=== PATIENT | male | born 1995 | race Caucasian/White ===

== ENCOUNTER 2018-10-28 18:53 | Emergency (ER) | payer OTHER ==
[2018-10-28 18:58] VITALS: RESP 18; TEMP 97.7
[2018-10-28] MEDS ORDERED: IBUPROFEN 600 MG STARTER PACK 4 TAB BTL PO STA (19:14)
[2018-10-28] MEDS ORDERED: CYCLOBENZAPRINE 10MG STARTER 3 TAB BTL PO STA (19:14)
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
--- NOTE | 2018-10-28 21:01 | XR ---
PROCEDURE: XR lumbar spine - 3V DATE AND TIME: 10/28/2018 7:46 PM CLINICAL INDICATION: [facility]; Pain TECHNIQUE: Department protocol COMPARISON: 04/28/2016 FINDINGS: There is no fracture or malalignment. The soft tissues are unremarkable. IMPRESSION: NO ACUTE PROCESS.
--- NOTE | 2018-10-28 21:01 | XR ---
PROCEDURE: XR thoracic spine 3V DATE AND TIME: 10/28/2018 7:46 PM CLINICAL INDICATION: [facility]; Pain TECHNIQUE: Department protocol COMPARISON: None FINDINGS: There is no fracture or malalignment. The soft tissues are unremarkable. IMPRESSION: NO ACUTE PROCESS.
[2018-10-28 21:42] VITALS: BP 133/73; PULSE 72
== END 2018-10-28 21:42 | disposition home or self-care (01) ==
LOC: EC 18:53
DX: M54.5 Low back pain (principal); M54.6 Pain in thoracic spine
CPT/HCPCS: 72070; 72100; 99284

== ENCOUNTER 2019-09-01 19:24 | Observation (INO) | payer BC ==
--- NOTE | 2019-09-01 19:55 | ED ---
General Adult HPI - General Source: patient, EMS, RN notes reviewed, old records reviewed Mode of arrival: EMS <Bryant Wilson - Last Filed: 09/01/19 21:01> <Leila Jc - Last Filed: 09/01/19 23:32> - General Chief complaint: Abdominal Pain Stated complaint: Abd pain Time Seen by Provider: 09/01/19 19:30 - History of Present Illness Initial comments: This is a 24-year-old male who comes in complaining of abdominal pain in the mid epigastric area since 2:00 this afternoon. Patient states she's been somewhat nauseated but has not vomited. Patient denies any diarrhea. Patient states he has not had a bowel movement today. Patient denies any previous abdominal surgeries. Patient states he went to an urgent care and they sent her to the emergency department. Patient denies any chest pain difficulty breathing shortest breath. Patient denies any drinking of alcohol. Patient denies any fever or chills. Patient states when he was up and moving around the pain went away for a short period time but then it returned. (Bryant Wilson) - Related Data Home Medications Medication Instructions Recorded Confirmed No Known Home Medications 09/01/19 09/01/19 Allergies Allergy/AdvReac Type Severity Reaction Status Date / Time No Known Allergies Allergy Verified 09/01/19 20:08 Review of Systems ROS Other: All systems not noted in ROS Statement are negative. <Bryant Wilson - Last Filed: 09/01/19 21:01> ROS Other: All systems not noted in ROS Statement are negative. <Leila Jc - Last Filed: 09/01/19 23:32> ROS Statement: Those systems with pertinent positive or pertinent negative responses have been documented in the HPI. Past Medical History Past Medical History: No Reported History History of Any Multi-Drug Resistant Organisms: None Reported Past Surgical History: No Surgical Hx Reported Past Psychological History: No Psychological Hx Reported Smoking Status: Never smoker Past Alcohol Use History: None Reported Past Drug Use History: None Reported <Byrant Wilson - Last Filed: 09/01/19 21:01> General Exam <Bryant Wilson - Last Filed: 09/01/19 21:01> - General Exam Comments Initial Comments: GENERAL: Patient is well-developed and well-nourished. Patient is nontoxic and well- hydrated and is in mild distress. ENT: Neck is soft and supple. No significant lymphadenopathy is noted. Oropharynx is clear. Moist mucous membranes. Neck has full range of motion without eliciting any pain. EYES: The sclera were anicteric and conjunctiva were pink and moist. Extraocular mo vements were intact and pupils were equal round and reactive to light. Eyelids were unremarkable. PULMONARY: Unlabored respirations. Good breath sounds bilaterally. No audible rales rhonchi or wheezing was noted. CARDIOVASCULAR: There is a regular rate and rhythm without any murmurs gallops or rubs. ABDOMEN: Mild epigastric abdominal pain. No palpable organomegaly was noted. There is no palpable pulsatile mass. SKIN: Skin is clear with no lesions or rashes and otherwise unremarkable. NEUROLOGIC: Patient is alert and oriented x3. Cranial nerves II through XII are grossly intact. Motor and sensory are also intact. Normal speech, volume and content. Symmetrical smile. MUSCULOSKELETAL: Normal extremities with adequate strength and full range of motion. No lower extremity swelling or edema. No calf tenderness. LYMPHATICS: No significant lymphadenopathy is noted PSYCHIATRIC: Normal psychiatric evaluation. (Bryant Wilson) Course Vital Signs 09/01/19 09/01/19 19:29 22:35 Temperature 96.9 F L Pulse Rate 69 66 Respiratory 18 18 Rate Blood Pressure 132/75 119/72 O2 Sat by Pulse 100 100 Oximetry Medical Decision Making - Lab Data Result diagrams: 09/01/19 20:15 <Bryant Wilson - Last Filed: 09/01/19 21:01> - Lab Data Result diagrams: 09/01/19 20:15 09/01/19 20:15 <Leila Jc - Last Filed: 09/01/19 23:32> - Medical Decision Making Dr. Jc will be taking over the care of the patient at 9 PM (Bryant Wilson) Patient care was signed out to me by Dr. Wilson. This is a previously healthy 24-year-old gentleman who presented with abdominal pain. At the time of sign out labs are pending. Labs resulted with mild leukocytosis or significant abnormalities urinalysis was unremarkable. I reevaluated patient who reported 10/10 pain. Pain was now localizing to the right lower quadrant, computed tomography scan was ordered and results with an acute appendicitis. Results were discussed with the patient who is agreeable with plan for observation and likely surgical intervention. Patient care was discussed with Dr. Peraza who accepts the patient to his service, requests pain management antiemetics antibiotics nothing by mouth status plan for surgery tomorrow. (Leila Jc) - Lab Data Lab Results 09/01/19 09/01/19 09/01/19 Range/Units 20:15 20:15 20:15 WBC 14.4 H (3.8-10.6) k/uL RBC 4.41 (4.30-5.90) m/uL Hgb 14.1 (13.0-17.5) gm/dL Hct 42.2 (39.0-53.0) % MCV 95.7 (80.0-100.0) fL MCH 32.1 (25.0-35.0) pg MCHC 33.5 (31.0-37.0) g/dL RDW 13.3 (11.5-15.5) % Plt Count 285 (150-450) k/uL Neutrophils % 89 % Lymphocytes % 5 % Monocytes % 6 % Eosinophils % 0 % Basophils % 0 % Neutrophils # 12.7 H (1.3-7.7) k/uL Lymphocytes # 0.7 L (1.0-4.8) k/uL Monocytes # 0.8 (0-1.0) k/uL Eosinophils # 0.1 (0-0.7) k/uL Basophils # 0.0 (0-0.2) k/uL Sodium 139 (137-145) mmol/L Potassium 3.8 (3.5-5.1) mmol/L Chloride 107 (98-107) mmol/L Carbon Dioxide 21 L (22-30) mmol/L Anion Gap 11 mmol/L BUN 17 (9-20) mg/dL Creatinine 0.68 (0.66-1.25) mg/dL Est GFR (CKD-EPI)AfAm >90 (>60 ml/min/1.73 sqM) Est GFR (CKD-EPI)NonAf >90 (>60 ml/min/1.73 sqM) Glucose 102 H (74-99) mg/dL Calcium 9.7 (8.4-10.2) mg/dL Total Bilirubin 0.6 (0.2-1.3) mg/dL AST 27 (17-59) U/L ALT 34 (21-72) U/L Alkaline Phosphatase 57 (38-126) U/L Total Protein 7.0 (6.3-8.2) g/dL Albumin 4.4 (3.5-5.0) g/dL Amylase 52 (30-110) U/L Lipase 67 (23-300) U/L Urine Color Yellow Urine Appearance Cloudy (Clear) Urine pH 8.5 H (5.0-8.0) Ur Specific Collins 1.027 (1.001-1.035) Urine Protein 1+ H (Negative) Urine Glucose (UA) Negative (Negative) Urine Ketones Negative (Negative) Urine Blood Negative (Negative) Urine Nitrite Negative (Negative) Urine Bilirubin Negative (Negative) Urine Urobilinogen <2.0 (<2.0) mg/dL Ur Leukocyte Esterase Negative (Negative) Urine RBC 1 (0-5) /hpf Urine WBC 2 (0-5) /hpf Urine Mucus Occasional H (None) /hpf Disposition <Bryant Wilson - Last Filed: 09/01/19 21:01> Is patient prescribed a controlled substance at d/c from ED?: No <Leila Jc - Last Filed: 09/01/19 23:32> Clinical Impression: Acute appendicitis Disposition: ADMITTED IP TO THIS HOSP Condition: Stable Referrals: None,Stated [Primary Care Provider] - 1-2 days
--- NOTE | 2019-09-01 20:42 | XR ---
EXAMINATION TYPE: XR KUB DATE OF EXAM: 09/01/2019 COMPARISON: NONE HISTORY: Stomach pain TECHNIQUE: 2 views upright FINDINGS: There is no sign of intestinal obstruction or pneumoperitoneum. Fecal pattern is normal. Th ere are no pathologic calcifications over the kidneys. Lung bases are clear. There is no sign of a ma ss. IMPRESSION: Nonacute abdomen.
[2019-09-01 20:57] LABS: Basophils % (A) 0 %; Eosinophils # (A) 0.1 k/uL (0-0.7); Eosinophils % (A) 0 %; HCT 42.2 % (39.0-53.0); HGB 14.1 gm/dL (13.0-17.5); Lymphocytes # (A) 0.7 k/uL (1.0-4.8); Lymphocytes % (A) 5 %; MCH 32.1 pg (25.0-35.0); MCHC 33.5 g/dL (31.0-37.0); MCV 95.7 fL (80.0-100.0); Mean Platelet Volume 6.3; Monocytes # (A) 0.8 k/uL (0-1.0); Monocytes % (A) 6 %; Neutrophils # (A) 12.7 k/uL (1.3-7.7); Neutrophils % (A) 89 %; Platelet Count 285 k/uL (150-450); RBC 4.41 m/uL (4.30-5.90); RDW 13.3 % (11.5-15.5); WBC 14.4 k/uL (3.8-10.6)
[2019-09-01 21:16] LABS: ALT 34 U/L (21-72); AST 27 U/L (17-59); African American GFR (CKD) >90 (>60 ml/min/1.73 sqM); Albumin 4.4 g/dL (3.5-5.0); Alkaline Phosphatase 57 U/L (38-126); Amylase 52 U/L (30-110); Anion Gap 11 mmol/L; Blood Urea Nitrogen 17 mg/dL (9-20); Calcium 9.7 mg/dL (8.4-10.2); Carbon Dioxide 21 mmol/L (22-30); Chloride 107 mmol/L (98-107); Glucose 102 mg/dL (74-99); Potassium 3.8 mmol/L (3.5-5.1); Sodium 139 mmol/L (137-145); Total Bilirubin 0.6 mg/dL (0.2-1.3)
[2019-09-01 21:27] LABS: Appearance,Urine Cloudy (Clear); Bilirubin,Urine Negative (Negative); Blood,Urine Negative (Negative); Color,Urine Yellow; Glucose,Urine (UA) Negative (Negative); Ketones,Urine Negative (Negative); Leukocyte Esterase,Urine Negative (Negative); Mucus,Urine Occasional /hpf; Nitrite,Urine Negative (Negative); PH, Urine 8.5 (5.0-8.0); Protein,Urine 1+ (Negative); RBC,Urine 1 /hpf (0-5); Specific Gravity,Urine 1.027 (1.001-1.035); Urobilinogen,Urine <2.0 mg/dL (<2.0); WBC,Urine 2 /hpf (0-5)
[2019-09-01] MEDS ORDERED: MAG HYDROX/AL HYDROX/SIMETH 30 ML, HYOSCYAMINE ELIXIR 10 ML, LIDOCAINE VISCOUS 2% 10 ML PO STA ×3 (22:27)
--- NOTE | 2019-09-01 23:22 | CT ---
EXAMINATION TYPE: CT abdomen pelvis w con DATE OF EXAM: 09/01/2019 COMPARISON: None HISTORY: RLQ pain CT DLP: 631.2 mGycm Automated exposure control for dose reduction was used. TECHNIQUE: Helical acquisition of images was performed from the lung bases through the pelvis. CONTRAST: Performed without Oral Contrast and with IV Contrast, patient injected with 100 mL of Isovue 300. FINDINGS: Lung bases are clear. There is no pleural effusion. Heart size is normal. There is no pericardial eff usion. Liver spleen pancreas gallbladder appear normal. Bile ducts are not dilated. Stomach appears normal. There is no adrenal mass. Kidneys show satisfactory contrast opacification. There is no hydronephrosi s. Delayed images show normal excretion. There is no retroperitoneal adenopathy. Bladder distends smoothly. There is no inguinal hernia. There is probably a small amount of free flui d in the pelvis. There is no mesenteric edema. There is no ascites. There is no evidence of free air. There appears to be a thickened appendix anteriorly in the right lower quadrant that measures 11 mm in diameter with fluid. Lumbar vertebra have normal spacing and alignment. Bony pelvis is intact. IMPRESSION: APPENDIX APPEARS TO BE THICKENED AND IS ANTERIOR AND CONSISTENT WITH ACUTE APPENDICITIS. THICKENED EN LARGED APPENDIX IS BEST SEEN ON THE CORONAL IMAGE 30.
[2019-09-01] MEDS ORDERED: NALOXONE 0.4 MG/ML 1 ML VIAL IV PRN (23:29)
[2019-09-01] MEDS ORDERED: MORPHINE SULFATE 4 MG/ML SYRINGE IV PRN (23:29)
[2019-09-01] MEDS ORDERED: ONDANSETRON 4 MG/2 ML VIAL IVP PRN (23:29)
[2019-09-02] MEDS: SODIUM CHLORIDE 0.9% 1,000 ML IV SCH ×2 (01:02→16:48)
[2019-09-02] MEDS: PIPERACILLIN-TAZOBACTAM 3.375 GM in SODIUM CHLORIDE 0.9% 100 ML IVPB SCH ×3 (01:02→16:48)
[2019-09-02] MEDS: PANTOPRAZOLE 40 MG/10 ML VIAL IVP SCH (09:16)
--- NOTE | 2019-09-02 09:19 | P.GSHP ---
<Nany Sawant A - Last Filed: 09/02/19 09:16> History of Present Illness H&P Date: 09/02/19 Chief Complaint: abdominal pain CHIEF COMPLAINT: Abdominal pain HISTORY OF PRESENT ILLNESS: 24-year-old male who presents to emergency room with a chief complaint of abdominal pain. Patient states he began having right sided abdominal pain yesterday around 1400. He was sitting at home watching TV at the time. He reports and dry heaves yesterday. He denies fever or chills. Denies diarrhea or constipation. Reports small BM yesterday morning. Pain has improved at the time of my examination. No further dry heaves. PAST MEDICAL HISTORY: See list. PAST SURGICAL HISTORY: See list. SOCIAL HISTORY: No illicit drug use. REVIEW OF SYSTEMS: CONSTITUTIONAL: Denies fever or chills. HEENT: Denies blurred vision, vision changes, or eye pain. Denies hemoptysis CARDIOVASCULAR: Denies chest pain or pressure. RESPIRATORY: No shortness of breath. GASTROINTESTINAL: Refer to [facility] for pertinent findings HEMATOLOGIC: Denies bleeding disorders. GENITOURINARY: Denies any blood in urine. SKIN: Denies pruitis. Denies rash. PHYSICAL EXAM: VITAL SIGNS: Reviewed. GENERAL: Well-developed in no acute distress. HEENT: No sclera icterus. Extraocular movements grossly intact. Moist buccal mucosa. Head is atraumatic, normocephalic. ABDOMEN: Soft. Nondistended. Tenderness on palpation of right lower quadrant. NEUROLOGIC: Alert and oriented. Cranial nerves II through XII grossly intact. LABORATORY DATA: WBC 14.4. Hemoglobin 14.1. Platelet count 285. IMAGIN. KUB x-ray: Nonacute abdomen 2. CT abdomen and pelvis: Appendix appears to be thickened in his anterior and consistent with acute appendicitis. ASSESSMENT: 1. Abdominal pain 2. Acute appendicitis 3. Leukocytosis PLAN: 1. Nothing by mouth. Continue IV fluids 2. Continue antibiotics. Monitor WBC 3. Patient to undergo laparoscopic appendectomy today with Dr. Gale. Nurse practitioner note has been reviewed by physician. Signing provider agrees with the documented findings, assessment, and plan of care. Past Medical History Past Medical History: No Reported History History of Any Multi-Drug Resistant Organisms: None Reported Past Surgical History: No Surgical Hx Reported Past Psychological History: No Psychological Hx Reported Smoking Status: Never smoker Past Alcohol Use History: None Reported Past Drug Use History: None Reported Medications and Allergies Home Medications Medication Instructions Recorded Confirmed Type No Known Home Medications 09/01/19 09/01/19 History Allergies Allergy/AdvReac Type Severity Reaction Status Date / Time No Known Allergies Allergy Verified 09/01/19 20:08 Surgical - Exam Vital Signs Temp Pulse Resp BP Pulse Ox 96.9 F L 69 18 132/75 100 09/01/19 19:29 09/01/19 19:29 09/01/19 19:29 09/01/19 19:29 09/01/19 19:29 Results - Labs 09/01/19 20:15 09/01/19 20:15 Abnormal Lab Results - Last 24 Hours (Table) 09/01/19 09/01/19 09/01/19 Range/Units 20:15 20:15 20:15 WBC 14.4 H (3.8-10.6) k/uL Neutrophils # 12.7 H (1.3-7.7) k/uL Lymphocytes # 0.7 L (1.0-4.8) k/uL Carbon Dioxide 21 L (22-30) mmol/L Glucose 102 H (74-99) mg/dL Urine pH 8.5 H (5.0-8.0) Urine Protein 1+ H (Negative) Urine Mucus Occasional H (None) /hpf Diabetes panel 09/01/19 Range/Units 20:15 Sodium 139 (137-145) mmol/L Potassium 3.8 (3.5-5.1) mmol/L Chloride 107 (98-107) mmol/L Carbon Dioxide 21 L (22-30) mmol/L BUN 17 (9-20) mg/dL Creatinine 0.68 (0.66-1.25) mg/dL Glucose 102 H (74-99) mg/dL Calcium 9.7 (8.4-10.2) mg/dL AST 27 (17-59) U/L ALT 34 (21-72) U/L Alkaline Phosphatase 57 (38-126) U/L Total Protein 7.0 (6.3-8.2) g/dL Albumin 4.4 (3.5-5.0) g/dL Calcium panel 09/01/19 Range/Units 20:15 Calcium 9.7 (8.4-10.2) mg/dL Albumin 4.4 (3.5-5.0) g/dL Pituitary panel 09/01/19 Range/Units 20:15 Sodium 139 (137-145) mmol/L Potassium 3.8 (3.5-5.1) mmol/L Chloride 107 (98-107) mmol/L Carbon Dioxide 21 L (22-30) mmol/L BUN 17 (9-20) mg/dL Creatinine 0.68 (0.66-1.25) mg/dL Glucose 102 H (74-99) mg/dL Calcium 9.7 (8.4-10.2) mg/dL Adrenal panel 09/01/19 Range/Units 20:15 Sodium 139 (137-145) mmol/L Potassium 3.8 (3.5-5.1) mmol/L Chloride 107 (98-107) mmol/L Carbon Dioxide 21 L (22-30) mmol/L BUN 17 (9-20) mg/dL Creatinine 0.68 (0.66-1.25) mg/dL Glucose 102 H (74-99) mg/dL Calcium 9.7 (8.4-10.2) mg/dL Total Bilirubin 0.6 (0.2-1.3) mg/dL AST 27 (17-59) U/L ALT 34 (21-72) U/L Alkaline Phosphatase 57 (38-126) U/L Total Protein 7.0 (6.3-8.2) g/dL Albumin 4.4 (3.5-5.0) g/dL <Chavo Gale - Last Filed: 09/02/19 10:52> Surgical - Exam Vital Signs Temp Pulse Resp BP Pulse Ox 96.9 F L 69 18 132/75 100 09/01/19 19:29 09/01/19 19:29 09/01/19 19:29 09/01/19 19:29 09/01/19 19:29 Results - Labs 09/01/19 20:15 09/01/19 20:15 Abnormal Lab Results - Last 24 Hours (Table) 09/01/19 09/01/19 09/01/19 Range/Units 20:15 20:15 20:15 WBC 14.4 H (3.8-10.6) k/uL Neutrophils # 12.7 H (1.3-7.7) k/uL Lymphocytes # 0.7 L (1.0-4.8) k/uL Carbon Dioxide 21 L (22-30) mmol/L Glucose 102 H (74-99) mg/dL Urine pH 8.5 H (5.0-8.0) Urine Protein 1+ H (Negative) Urine Mucus Occasional H (None) /hpf Diabetes panel 09/01/19 Range/Units 20:15 Sodium 139 (137-145) mmol/L Potassium 3.8 (3.5-5.1) mmol/L Chloride 107 (98-107) mmol/L Carbon Dioxide 21 L (22-30) mmol/L BUN 17 (9-20) mg/dL Creatinine 0.68 (0.66-1.25) mg/dL Glucose 102 H (74-99) mg/dL Calcium 9.7 (8.4-10.2) mg/dL AST 27 (17-59) U/L ALT 34 (21-72) U/L Alkaline Phosphatase 57 (38-126) U/L Total Protein 7.0 (6.3-8.2) g/dL Albumin 4.4 (3.5-5.0) g/dL Calcium panel 09/01/19 Range/Units 20:15 Calcium 9.7 (8.4-10.2) mg/dL Albumin 4.4 (3.5-5.0) g/dL Pituitary panel 09/01/19 Range/Units 20:15 Sodium 139 (137-145) mmol/L Potassium 3.8 (3.5-5.1) mmol/L Chloride 107 (98-107) mmol/L Carbon Dioxide 21 L (22-30) mmol/L BUN 17 (9-20) mg/dL Creatinine 0.68 (0.66-1.25) mg/dL Glucose 102 H (74-99) mg/dL Calcium 9.7 (8.4-10.2) mg/dL Adrenal panel 09/01/19 Range/Units 20:15 Sodium 139 (137-145) mmol/L Potassium 3.8 (3.5-5.1) mmol/L Chloride 107 (98-107) mmol/L Carbon Dioxide 21 L (22-30) mmol/L BUN 17 (9-20) mg/dL Creatinine 0.68 (0.66-1.25) mg/dL Glucose 102 H (74-99) mg/dL Calcium 9.7 (8.4-10.2) mg/dL Total Bilirubin 0.6 (0.2-1.3) mg/dL AST 27 (17-59) U/L ALT 34 (21-72) U/L Alkaline Phosphatase 57 (38-126) U/L Total Protein 7.0 (6.3-8.2) g/dL Albumin 4.4 (3.5-5.0) g/dL
[2019-09-02] MEDS ORDERED: IV FLUID CONTINUATION 1,000 ML IV ONE (10:39)
[2019-09-02] MEDS ORDERED: HEPARIN SODIUM,PORCINE 5,000 UNIT/ML 1 ML VIAL SQ ONE (11:06)
[2019-09-02] MEDS ORDERED: BUPIVACAINE (PF) 0.5% 30 ML VIAL SQ ONE (12:03)
[2019-09-02] MEDS ORDERED: GLYCOPYRROLATE 0.2 MG/ML 2 ML VIAL ONE (12:09)
[2019-09-02] MEDS ORDERED: ROCURONIUM BROMIDE 10 MG/ML 10 ML VIAL IV ONE (12:09)
[2019-09-02] MEDS ORDERED: NEOSTIGMINE 1 MG/ML 10 ML VIAL ONE (12:09)
[2019-09-02] MEDS ORDERED: MIDAZOLAM 2 MG/2 ML VIAL ONE (12:09)
[2019-09-02] MEDS ORDERED: SUCCINYLCHOLINE CHLORIDE 100 MG/5 ML SYR IV ONE (12:09)
[2019-09-02] MEDS ORDERED: PROPOFOL 10 MG/ML 20 ML VIAL IV ONE (12:09)
[2019-09-02] MEDS ORDERED: fentaNYL (PF) 50 MCG/ML 2 ML AMP ONE (12:09)
[2019-09-02] MEDS ORDERED: BUPIVACAINE (PF) 0.25% 30 ML VIAL SQ ONE (12:32)
--- NOTE | 2019-09-02 13:04 | P.OP ---
Date of Procedure: 09/02/19 Preoperative Diagnosis: Acute appendicitis Postoperative Diagnosis: Acute appendicitis Procedure(s) Performed: Laparoscopic appendectomy Anesthesia: MELIZA Surgeon: Chavo Gale Estimated Blood Loss (ml): 5 Pathology: other (Appendix) Condition: stable Disposition: PACU Description of Procedure: HThe patient's placed on the operating table in the supine position. The patient received general anesthesia. The abdomen was prepped and draped in the usual sterile fashion. The skin was anesthetized 1% local Xylocaine at the trocar sites. Using an 11 blade the skin was incised at the umbilicus. The umbilicus was grasped with a Arvin clamp and then a Veress needle was placed into the peritoneal cavity. Position of the Veress needle was confirmed with positive drop test. After adequate insufflation a 5 mm trocar was placed into the peritoneal cavity. The abdomen was further insufflated. And then the laparoscope was placed in the peritoneal cavity. Next a 5 mm trocar was placed in the midline suprapubic position. And then a 10 mm trocar was placed in the midline epigastric position. The patient was rotated with the right side up and in Trendelenburg. The appendix was visualized. The appendix appeared to be inflamed. The appendix was grasped and then using the Harmonic scissors the mesoappendix was divided. A PDS Endoloop was then placed around the base of the appendix. And then the appendix was divided using Harmonic scissors. The appendix was placed into an Endo Catch and brought out through the 10 mm trocar site. The abdomen was irrigated. There is no bleeding seen. The trochars withdrawn. The skin was closed interrupted 3-0 Monocryl suture. Dermabond dressing was applied. Patient was sent to recovery room in stable condition.
--- NOTE | 2019-09-02 15:25 | P.CONS ---
History of Present Illness - Reason for Consult Consult date: 09/02/19 Medical management - Chief Complaint Abdominal pain - History of Present Illness Patient is a 24-year-old male without significant past medical history came to ER with complaints of abdominal pain started around 6 PM yesterday evening. Patient thought he had some indigestion. Pain started mainly in the right lower quadrant and radiated across the abdomen. Due to worsening symptoms, diffuse a bdominal pain and nausea patient presents to ER for further evaluation. Patient otherwise denied any recent illnesses. No vomiting. No diarrhea. CT of abdomen pelvis showed appendix appears to be the case and is anterior and consistent with acute appendicitis. Thickened and enlarged appendix is best seen on the coronal image. WBC 14.4. Patient has been afebrile Patient was taken to or for appendectomy by general surgery. Review of Systems Constitutional: Patient denies any fever or chills . No generalized weakness or weight loss. Abdomen: Patient does have nausea and abdominal pain. Cardiovascular: Patient denies any chest pain or short of breath no palpitations. Respiratory: patient denied any cough is from production. No shortness of breath Neurologic: Patient denied any numbness or tingling headache. Musculoskeletal: Patient denies any complaints of joint swelling or deformity. Skin: Negative Psychiatric: Negative Endocrine: No heat or cold intolerance. No recent weight gain. Genitourinary: No dysuria or hematuria. All other 14 point ROS negative except the above Past Medical History Past Medical History: No Reported History History of Any Multi-Drug Resistant Organisms: None Reported Past Surgical History: No Surgical Hx Reported Past Psychological History: No Psychological Hx Reported Smoking Status: Never smoker Past Alcohol Use History: None Reported Past Drug Use History: None Reported - Past Family History Father Family Medical History: Diabetes Mellitus Additional Family Medical History / Comment(s): Pt states he does not know much about his father. Mother Family Medical History: No Reported History Additional Family Medical History / Comment(s): Mother is healthy. Medications and Allergies Home Medications Medication Instructions Recorded Confirmed Type No Known Home Medications 09/01/19 09/01/19 History Allergies Allergy/AdvReac Type Severity Reaction Status Date / Time No Known Allergies Allergy Verified 09/01/19 20:08 Physical Exam Vitals: Vital Signs Temp Pulse Pulse Resp BP BP BP 09/02/19 10:48 98.6 F 76 16 122/64 09/02/19 09:26 97.6 F 74 16 116/66 09/02/19 04:32 98.6 F 76 18 126/68 09/02/19 01:04 89 18 134/74 09/01/19 22:35 66 18 119/72 09/01/19 19:29 96.9 F L 69 18 132/75 Pulse Ox 09/02/19 10:48 100 09/02/19 09:26 99 09/02/19 04:32 99 09/02/19 01:04 98 09/01/19 22:35 100 09/01/19 19:29 100 Intake and Output 09/01/19 09/02/19 09/02/19 22:59 06:59 14:59 Other: Weight 67.132 kg PHYSICAL EXAMINATION: Patient is lying in the bed comfortably, no acute distress, awake alert and oriented.. HEENT: Normocephalic. Neck is supple. Pupils reactive. Nostrils clear. Oral cav ity is moist. Ears reveal no drainage. Neck reveals no JVD, carotid bruits, or thyromegaly. CHEST EXAMINATION: Trachea is central. Symmetrical expansion. Lung hancock clear to auscultation and percussion. CARDIAC: Normal S1, S2 with no gallops. No murmurs ABDOMEN: Soft. Tenderness over the surgical site. No guarding no rigidity Bowel sounds normal. No organomegaly. No abdominal bruits. Extremities: reveal no edema. No clubbing or cyanosis Neurologically awake, alert, oriented x3 with well-coordinated movements. No focal deficits noted Skin: No rash or skin lesions. Psychiatric: Coperative. Nonsuicidal Musculoskeletal: No joint swelling or deformity. Normal range of motion. Results CBC & Chem 7: 09/01/19 20:15 09/01/19 20:15 Labs: Abnormal Lab Results - Last 24 Hours (Table) 09/01/19 09/01/19 09/01/19 Range/Units 20:15 20:15 20:15 WBC 14.4 H (3.8-10.6) k/uL Neutrophils # 12.7 H (1.3-7.7) k/uL Lymphocytes # 0.7 L (1.0-4.8) k/uL Carbon Dioxide 21 L (22-30) mmol/L Glucose 102 H (74-99) mg/dL Urine pH 8.5 H (5.0-8.0) Urine Protein 1+ H (Negative) Urine Mucus Occasional H (None) /hpf Assessment and Plan Assessment: Acute appendicitis status post appendectomy postoperative day 0 Leukocytosis WBC 14.7 on admission DVT prophylaxis by early ambulation Plan: Patient will be continued on pain management,, Bowel regimen. Encourage ambulation. Continue with empiric antibiotics in the form of Zosyn. will repeat CBC. Continue to follow closely and further recommendations based on the clinical course. Time with Patient: Greater than 30
[2019-09-02 15:32] LABS: Basophils % (A) 0 %; Eosinophils % (A) 0 %; HCT 42.1 % (39.0-53.0); HGB 13.5 gm/dL (13.0-17.5); Lymphocytes # (A) 0.4 k/uL (1.0-4.8); Lymphocytes % (A) 3 %; MCH 32.6 pg (25.0-35.0); MCHC 32.2 g/dL (31.0-37.0); Macrocytosis Slight; Monocytes # (A) 0.1 k/uL (0-1.0); Monocytes % (A) 1 %; Neutrophils # (A) 12.1 k/uL (1.3-7.7); Neutrophils % (A) 95 %; Platelet Count 223 k/uL (150-450); RBC 4.16 m/uL (4.30-5.90); RDW 13.4 % (11.5-15.5); WBC 12.7 k/uL (3.8-10.6)
[2019-09-02 15:33] LABS: MCV 101.1 fL (80.0-100.0)
[2019-09-02 15:35] LABS: African American GFR (CKD) >90 (>60 ml/min/1.73 sqM); Anion Gap 9 mmol/L; Blood Urea Nitrogen 13 mg/dL (9-20); Calcium 9.1 mg/dL (8.4-10.2); Carbon Dioxide 21 mmol/L (22-30); Chloride 109 mmol/L (98-107); Glucose 134 mg/dL (74-99); Potassium 4.5 mmol/L (3.5-5.1); Sodium 139 mmol/L (137-145)
[2019-09-02] MEDS ORDERED: HYDROcodone/APAP 5-325MG 1 EACH TAB PO PRN (16:41)
[2019-09-02] MEDS: HEPARIN SODIUM,PORCINE 5,000 UNIT/ML 1 ML VIAL SQ SCH (20:28)
[2019-09-03] MEDS: PIPERACILLIN-TAZOBACTAM 3.375 GM in SODIUM CHLORIDE 0.9% 100 ML IVPB SCH ×2 (00:20→08:48)
[2019-09-03] MEDS: SODIUM CHLORIDE 0.9% 1,000 ML IV SCH (03:52)
[2019-09-03 05:57] LABS: Basophils % (A) 0 %; Eosinophils % (A) 0 %; HCT 35.6 % (39.0-53.0); Lymphocytes # (A) 1.1 k/uL (1.0-4.8); Lymphocytes % (A) 15 %; MCH 32.7 pg (25.0-35.0); MCHC 33.7 g/dL (31.0-37.0); MCV 97.1 fL (80.0-100.0); Mean Platelet Volume 6.7; Monocytes # (A) 0.6 k/uL (0-1.0); Monocytes % (A) 8 %; Neutrophils # (A) 5.7 k/uL (1.3-7.7); Neutrophils % (A) 75 %; Platelet Count 236 k/uL (150-450); RBC 3.67 m/uL (4.30-5.90); RDW 13.4 % (11.5-15.5); WBC 7.5 k/uL (3.8-10.6)
[2019-09-03 07:51] VITALS: BP 115/62; PULSE 70; RESP 17; TEMP 98.3
[2019-09-03] MEDS: HEPARIN SODIUM,PORCINE 5,000 UNIT/ML 1 ML VIAL SQ SCH (08:24)
[2019-09-03] MEDS: PANTOPRAZOLE 40 MG/10 ML VIAL IVP SCH (08:24)
--- NOTE | 2019-09-03 14:14 | P.DS ---
Providers Date of admission: 09/01/19 23:29 Expected date of discharge: 09/03/19 Attending physician: Chavo Gale Consults: 09/02/19 08:23 Consult Physician Routine Consulting Provider: Eugenie Klein Consult Reason/Comments: Medical management Do you want consulting provider notified?: Yes 09/02/19 13:04 Consult Physician Routine Consulting Provider: Eugenie Klein Consult Reason/Comments: Medical management Do you want consulting provider notified?: Yes Primary care physician: Stated None Hospital Course: 24-year-old male who presents to emergency room with a chief complaint of abdominal pain. Workup completed in the emergency room revealed evidence of appendicitis. Patient underwent laparoscopic appendectomy with Dr. Gale. Patient is doing well postoperatively without any immediate complications. Vital signs are stable. Pain controlled on oral medications. He is stable for discharge home today. Please see EMR for further hospital course details. Discharge diagnosis: 1. Abdominal pain 2. Acute appendicitis 3. Leukocytosis Nurse practitioner note has been reviewed by physician. Signing provider agrees with the documented findings, assessment, and plan of care. Patient Condition at Discharge: Stable Plan - Discharge Summary Discharge Rx Participant: No New Discharge Prescriptions: New Hydrocodone/Acetaminophen [[place] 5-325] 1 tab PO Q6HR PRN 3 Days #12 tab PRN Reason: Pain Docusate [Colace] 100 mg PO BID #30 capsule Discharge Medication List Docusate [Colace] 100 mg PO BID #30 capsule 09/02/19 [Rx] Hydrocodone/Acetaminophen [[place] 5-325] 1 tab PO Q6HR PRN 3 Days #12 tab 09/02/19 [Rx] Follow up Appointment(s)/Referral(s): None,Stated [Primary Care Provider] - 1-2 days Chavo Gale MD [STAFF PHYSICIAN] - 09/11/19 12:20 pm (Follow up in the office with Dr. Gale as scheduled for you) Patient Instructions/Handouts: Appendicitis (GEN) Activity/Diet/Wound Care/Special Instructions: No driving while taking [place] No lifting over 10 pounds You may shower. No soaking or tub baths Very light activity until you are reevaluated at your follow up appointment with your surgeon You may return to work ONLY if employer will place you in a position where you are not required to lift over 10 pounds Discharge Disposition: HOME SELF-CARE
[2019-09-04] MEDS ORDERED: PANTOPRAZOLE 40 MG TABLET PO SCH (09:00)
== END 2019-09-03 13:16 | disposition home or self-care (01) ==
LOC: EC 19:24 → 4MS4W 23:29 → 1SOBS 09-02 13:14
PROVIDERS: ADMIT Surgery; ATTEND Surgery
DX: K35.80 Unspecified acute appendicitis (principal); Z83.3 Family history of diabetes mellitus
CPT/HCPCS: 44970; 99285; 36415; 88304; 80053; 80048; 82150; 83690; 85025 ×3; 81001; 74018; 74177; G0378 ×3; J2543 ×2; J2250; J2270; J1644 ×2; J2710; J3010; J0330; J2704; C9113 ×2; Q9967

== ENCOUNTER 2020-08-20 13:24 | Emergency (ER) | payer BC ==
[2020-08-20 13:28] VITALS: RESP 16
[2020-08-20] MEDS ORDERED: SODIUM CHLORIDE 0.9% 1,000 ML IV ONE (14:53)
--- NOTE | 2020-08-20 15:13 | ED ---
Chest Pain HPI - General Chief Complaint: Chest Pain Stated Complaint: Chest Pains Time Seen by Provider: 08/20/20 13:47 Source: patient Mode of arrival: ambulatory Limitations: no limitations - History of Present Illness Initial Comments: Patient is a 24-year-old male with no past medical history who presents to the emergency room with reported chest pain. States that he is at home when he attempted to get something to eat. He began having left-sided chest pain which radiated into his left arm. His left arm felt shaky. States that he was having difficulty holding a pop he was trying to get out of the fridge. Became very anxious and decided to come into the emergency room for evaluation. Denies history of connective tissue disorder or Marfan's. Denies ripping or tearing sensation to his back. Reports that the chest pain is gone at this time. It was not reproducible. Denies pleuritic chest pain. No history of DVT or PE. Denies any lower extremity swelling. No family history of sudden cardiac . Denies any shortness of breath. No cough. No fevers or chills. Denies any drug use. Denies any unilateral numbness or weakness. No other alleviating, precipitating or monitoring factors - Related Data Previous Rx's Medication Instructions Recorded Docusate [Colace] 100 mg PO BID #30 capsule 09/02/19 Hydrocodone/Acetaminophen [[place] 1 tab PO Q6HR PRN 3 Days #12 tab 09/02/19 5-325] Allergies Allergy/AdvReac Type Severity Reaction Status Date / Time No Known Allergies Allergy Verified 09/01/19 20:08 Review of Systems ROS Statement: Those systems with pertinent positive or pertinent negative responses have been documented in the HPI. ROS Other: All systems not noted in ROS Statement are negative. EKG Findings - EKG Comments: EKG Findings:: EKG demonstrates sinus tachycardia with a ventricular rate of 101. OR interval 122. QRS 82. QTC of 389. No acute ST segment elevations or depressions. No signs of [place]-Hgpdwtqqe-Crpgy or Brugada syndrome Past Medical History Past Medical History: No Reported History History of Any Multi-Drug Resistant Organisms: None Reported Past Surgical History: Appendectomy Additional Past Surgical History / Comment(s): 09/02/19 Shruti Maurer knee arthroscopy Past Anesthesia/Blood Transfusion Reactions: No Reported Reaction Past Psychological History: No Psychological Hx Reported Smoking Status: Never smoker Past Alcohol Use History: Occasional Past Drug Use History: None Reported - Past Family History Father Family Medical History: Diabetes Mellitus Additional Family Medical History / Comment(s): Pt states he does not know much about his father. Mother Family Medical History: No Reported History Additional Family Medical History / Comment(s): Mother is healthy. General Exam Limitations: no limitations Course Vital Signs 08/20/20 08/20/20 13:25 17:06 Temperature 98.6 F 98.3 F Pulse Rate 104 H 99 Respiratory 16 16 Rate Blood Pressure 135/74 138/70 O2 Sat by Pulse 98 98 Oximetry Chest Pain MDM - MDM Upon arrival the patient is placed into room 6. A thorough history and physical exam was performed. 12-lead EKG was performed. I reviewed her studies were conducted and the patient on for chest x-ray. Laboratory studies are unremarkable. D-dimer is negative. Troponin is negative. Chest x-ray demonstrates no acute findings. I did discuss results with the patient. Reports the pain is completely gone at this time. I did recommend he follow up with his primary care physician in order to have an echo and Holter monitoring. Patient reports he does not have a primary care physician there for one is recommended to him. Patient will be discharged home at this time. He is asked to return to the emergency room and she have any new or worsening symptoms. States he did drink a caffeine supplement earlier today. I did recommend that he stop drinking caffeinated supplements to see if he has any improvement in symptoms. Patient understood. Patient was then discharged home in stable condition Disposition Clinical Impression: Chest pain Disposition: HOME SELF-CARE Condition: Stable Instructions (If sedation given, give patient instructions): Chest Pain (ED) Additional Instructions: Please follow-up with your primary care doctor. I do recommend Holter monitoring and echo your heart. Return to the emergency room for any new or worsening symptoms Is patient prescribed a controlled substance at d/c from ED?: No Referrals: None,Stated [Primary Care Provider] - 1-2 days Niraj Steinberg MD [Medical Doctor] - 1-2 days Time of Disposition: 16:31
--- NOTE | 2020-08-20 15:29 | XR ---
EXAMINATION TYPE: XR chest 2V DATE OF EXAM: 08/20/2020 COMPARISON: 07/26/2009 HISTORY: Chest pain TECHNIQUE: 2 views FINDINGS: Heart and mediastinum are normal. Lungs are clear. Diaphragm is normal. Bony thorax is inta ct. Pulmonary vascularity is normal. IMPRESSION: Normal chest.
[2020-08-20 15:46] LABS: Basophils % (A) 1 %; Eosinophils % (A) 1 %; HCT 42.8 % (39.0-53.0); HGB 14.4 gm/dL (13.0-17.5); Lymphocytes # (A) 0.9 k/uL (1.0-4.8); Lymphocytes % (A) 19 %; MCH 32.5 pg (25.0-35.0); MCHC 33.7 g/dL (31.0-37.0); MCV 96.4 fL (80.0-100.0); Mean Platelet Volume 7.3; Monocytes # (A) 0.4 k/uL (0-1.0); Monocytes % (A) 8 %; Neutrophils # (A) 3.6 k/uL (1.3-7.7); Neutrophils % (A) 70 %; Platelet Count 238 k/uL (150-450); RBC 4.44 m/uL (4.30-5.90); RDW 12.8 % (11.5-15.5); WBC 5.1 k/uL (3.8-10.6)
[2020-08-20 16:07] LABS: ALT 18 U/L (4-49); AST 29 U/L (17-59); African American GFR (CKD) >90 (>60 ml/min/1.73 sqM); Albumin 3.7 g/dL (3.5-5.0); Alkaline Phosphatase 47 U/L (38-126); Anion Gap 4 mmol/L; Blood Urea Nitrogen 18 mg/dL (9-20); Carbon Dioxide 24 mmol/L (22-30); Chloride 110 mmol/L (98-107); Glucose 100 mg/dL (74-99); Non-African American GFR(CKD) >90 (>60 ml/min/1.73 sqM); Potassium 3.8 mmol/L (3.5-5.1); Sodium 138 mmol/L (137-145); Total Bilirubin 0.5 mg/dL (0.2-1.3); Total Protein 5.7 g/dL (6.3-8.2)
[2020-08-20 17:08] VITALS: BP 138/70; PULSE 99; TEMP 98.3
== END 2020-08-20 17:08 | disposition home or self-care (01) ==
LOC: EC 13:24
DX: R07.9 Chest pain, unspecified (principal)
CPT/HCPCS: 36415; 71046; 80053; 84484; 85025; 85379; 93005; 96360; 99285

== ENCOUNTER 2021-03-09 22:35 | Emergency (ER) | payer BC, OTHER ==
[2021-03-09 22:47] VITALS: RESP 16
[2021-03-09] MEDS ORDERED: FAMOTIDINE 20 MG/2 ML VIAL IV STA (23:53)
[2021-03-09] MEDS ORDERED: ACETAMINOPHEN TAB 325 MG TAB PO STA (23:53)
[2021-03-09] MEDS ORDERED: SODIUM CHLORIDE 0.9% 1,000 ML IV STA (23:53)
[2021-03-10 00:19] LABS: Basophils # (A) 0.1 k/uL (0-0.2); Basophils % (A) 1 %; Eosinophils # (A) 0.2 k/uL (0-0.7); Eosinophils % (A) 3 %; HCT 41.5 % (39.0-53.0); HGB 14.3 gm/dL (13.0-17.5); Lymphocytes # (A) 1.7 k/uL (1.0-4.8); Lymphocytes % (A) 30 %; MCH 32.2 pg (25.0-35.0); MCHC 34.6 g/dL (31.0-37.0); MCV 93.2 fL (80.0-100.0); Mean Platelet Volume 7.1; Monocytes # (A) 0.6 k/uL (0-1.0); Monocytes % (A) 10 %; Neutrophils # (A) 3.3 k/uL (1.3-7.7); Neutrophils % (A) 55 %; Platelet Count 273 k/uL (150-450); RBC 4.45 m/uL (4.30-5.90); RDW 12.7 % (11.5-15.5); WBC 5.9 k/uL (3.8-10.6)
[2021-03-10 00:23] LABS: Appearance,Urine Clear (Clear); Bilirubin,Urine Negative (Negative); Blood,Urine Negative (Negative); Color,Urine Light Yellow; Glucose,Urine (UA) Negative (Negative); Ketones,Urine Negative (Negative); Leukocyte Esterase,Urine Negative (Negative); Nitrite,Urine Negative (Negative); PH, Urine 7.5 (5.0-8.0); Protein,Urine Negative (Negative); Specific Gravity,Urine 1.014 (1.001-1.035); Urobilinogen,Urine <2.0 mg/dL (<2.0)
[2021-03-10 00:30] LABS: ALT 30 U/L (4-49); AST 29 U/L (17-59); African American GFR (CKD) >90 (>60 ml/min/1.73 sqM); Albumin 4.4 g/dL (3.5-5.0); Alkaline Phosphatase 90 U/L (38-126); Anion Gap 9 mmol/L; Blood Urea Nitrogen 13 mg/dL (9-20); Calcium 9.8 mg/dL (8.4-10.2); Carbon Dioxide 24 mmol/L (22-30); Chloride 107 mmol/L (98-107); Glucose 111 mg/dL (74-99); Lipase 167 U/L (23-300); Non-African American GFR(CKD) >90 (>60 ml/min/1.73 sqM); Potassium 3.8 mmol/L (3.5-5.1); Sodium 140 mmol/L (137-145); Total Bilirubin 0.3 mg/dL (0.2-1.3); Total Protein 7.1 g/dL (6.3-8.2)
--- NOTE | 2021-03-10 01:10 | XR ---
EXAM: XR Abdomen, 2 Views CLINICAL HISTORY: ITS.REASON XR Reason: LLQ pain TECHNIQUE: Frontal view of the abdomen/pelvis with upright view of the abdomen. COMPARISON: No relevant prior studies available. FINDINGS: Intraperitoneal space: No free air. Gastrointestinal tract: Unremarkable. No dilation. Mild fecal burden of the colon. Bones/joints: Unremarkable. IMPRESSION: Nonobstructive bowel gas pattern. Mild fecal burden throughout the colon.
--- NOTE | 2021-03-10 01:19 | ED ---
Abdominal Pain HPI - General Chief Complaint: Abdominal Pain Stated Complaint: LT flank pain Time Seen by Provider: 03/09/21 22:49 Source: patient Mode of arrival: ambulatory Limitations: no limitations - History of Present Illness Initial Comments: 25-year-old male patient presents to the emergency department today for evaluation of left lower quadrant abdominal pain. Patient states symptoms started 3 days ago and have been worsening. Denies radiation of pain through to his back. States he has had some nausea today. No vomiting or diarrhea. Den ies fever or chills. Has had appendectomy no other abdominal surgeries. Does admit to having a poor diet and poor fluid intake. Reports history of chronic back pain, no change to his back pain. Had a normal bowel movement yesterday. Denies any hematuria, dysuria, urinary frequency, urinary urgency. Denies history of kidney stone. Patient denies any recent rash, cough, shortness of breath, chest pain, numbness, tingling, dizziness, weakness, headache, visual changes, or any other complaints. - Related Data Previous Rx's Medication Instructions Recorded Docusate [Colace] 100 mg PO BID #30 capsule 09/02/19 Hydrocodone/Acetaminophen [[place] 1 tab PO Q6HR PRN 3 Days #12 tab 09/02/19 5-325] Famotidine [Pepcid] 20 mg PO HS #30 tablet 03/10/21 polyethylene glycoL 3350 [Miralax] 17 gm PO DAILY #30 packet 03/10/21 Allergies Allergy/AdvReac Type Severity Reaction Status Date / Time No Known Allergies Allergy Verified 03/09/21 22:44 Review of Systems ROS Statement: Those systems with pertinent positive or pertinent negative responses have been documented in the HPI. ROS Other: All systems not noted in ROS Statement are negative. Past Medical History Past Medical History: No Reported History History of Any Multi-Drug Resistant Organisms: None Reported Past Surgical History: Appendectomy Additional Past Surgical History / Comment(s): 09/02/19 Shruti Maurer knee arthroscopy Past Anesthesia/Blood Transfusion Reactions: No Reported Reaction Past Psychological History: No Psychological Hx Reported Smoking Status: Never smoker Past Alcohol Use History: Occasional Past Drug Use History: None Reported - Past Family History Father Family Medical History: Diabetes Mellitus Additional Family Medical History / Comment(s): Pt states he does not know much about his father. Mother Family Medical History: No Reported History Additional Family Medical History / Comment(s): Mother is healthy. General Exam Limitations: no limitations General appearance: alert, in no apparent distress, other (Physical well- developed, well-nourished adult male patient in no acute distress. Vital signs upon presentation are temperature 97.9F, pulse 74, respirations 16, blood pressure 143/85, pulse ox 99% on room air.) Eye exam: Present: normal appearance, PERRL, EOMI. Absent: scleral icterus, conjunctival injection, periorbital swelling ENT exam: Present: normal exam, normal oropharynx, mucous membranes moist Respiratory exam: Present: normal lung sounds bilaterally. Absent: respiratory distress, wheezes, rales, rhonchi, stridor Cardiovascular Exam: Present: regular rate, normal rhythm, normal heart sounds. Absent: systolic murmur, diastolic murmur, rubs, gallop, clicks GI/Abdominal exam: Present: soft, tenderness (Left upper quadrant, left lower quadrant, suprapubic.), normal bowel sounds. Absent: distended, guarding, rebound, rigid Neurological exam: Present: alert, oriented X3, CN II-XII intact Psychiatric exam: Present: normal affect, normal mood Skin exam: Present: warm, dry, intact, normal color. Absent: rash Course Vital Signs 03/09/21 22:44 Temperature 97.9 F Pulse Rate 74 Respiratory 16 Rate Blood Pressure 143/85 O2 Sat by Pulse 99 Oximetry Medical Decision Making - Medical Decision Making 25-year-old male patient presents to the emergency department today for evaluation of left lower quadrant abdominal pain. Physical examination did reveal left lower quadrant, suprapubic, left upper quadrant tenderness. As reviewed and are unremarkable. White blood cell count is normal. He is afebrile. X-ray was obtained and showed mild fecal burden throughout the colon, no other abnormalities. Upon reevaluation patient is resting in bed. Comfortably. Did discuss findings. He'll be given a prescription for Pepcid and MiraLAX. He is instructed to follow-up with the primary care physician for recheck in 1-2 days. Return parameters were discussed in detail. He verbalizes understanding and agrees with this plan. Case discussed with my attending Dr. Torrez. - Lab Data Result diagrams: 03/10/21 00:10 03/10/21 00:10 Lab Results 03/10/21 03/10/21 03/10/21 Range/Units 00:10 00:10 00:10 WBC 5.9 (3.8-10.6) k/uL RBC 4.45 (4.30-5.90) m/uL Hgb 14.3 (13.0-17.5) gm/dL Hct 41.5 (39.0-53.0) % MCV 93.2 (80.0-100.0) fL MCH 32.2 (25.0-35.0) pg MCHC 34.6 (31.0-37.0) g/dL RDW 12.7 (11.5-15.5) % Plt Count 273 (150-450) k/uL MPV 7.1 Neutrophils % 55 % Lymphocytes % 30 % Monocytes % 10 % Eosinophils % 3 % Basophils % 1 % Neutrophils # 3.3 (1.3-7.7) k/uL Lymphocytes # 1.7 (1.0-4.8) k/uL Monocytes # 0.6 (0-1.0) k/uL Eosinophils # 0.2 (0-0.7) k/uL Basophils # 0.1 (0-0.2) k/uL Sodium 140 (137-145) mmol/L Potassium 3.8 (3.5-5.1) mmol/L Chloride 107 (98-107) mmol/L Carbon Dioxide 24 (22-30) mmol/L Anion Gap 9 mmol/L BUN 13 (9-20) mg/dL Creatinine 0.63 L (0.66-1.25) mg/dL Est GFR (CKD-EPI)AfAm >90 (>60 ml/min/1.73 sqM) Est GFR (CKD-EPI)NonAf >90 (>60 ml/min/1.73 sqM) Glucose 111 H (74-99) mg/dL Plasma Lactic Acid Erick (0.7-2.0) mmol/L Calcium 9.8 (8.4-10.2) mg/dL Total Bilirubin 0.3 (0.2-1.3) mg/dL AST 29 (17-59) U/L ALT 30 (4-49) U/L Alkaline Phosphatase 90 (38-126) U/L Total Protein 7.1 (6.3-8.2) g/dL Albumin 4.4 (3.5-5.0) g/dL Lipase 167 (23-300) U/L Urine Color Light Yellow Urine Appearance Clear (Clear) Urine pH 7.5 (5.0-8.0) Ur Specific [place] 1.014 (1.001-1.035) Urine Protein Negative (Negative) Urine Glucose (UA) Negative (Negative) Urine Ketones Negative (Negative) Urine Blood Negative (Negative) Urine Nitrite Negative (Negative) Urine Bilirubin Negative (Negative) Urine Urobilinogen <2.0 (<2.0) mg/dL Ur Leukocyte Esterase Negative (Negative) 03/10/21 Range/Units 00:10 WBC (3.8-10.6) k/uL RBC (4.30-5.90) m/uL Hgb (13.0-17.5) gm/dL Hct (39.0-53.0) % MCV (80.0-100.0) fL MCH (25.0-35.0) pg MCHC (31.0-37.0) g/dL RDW (11.5-15.5) % Plt Count (150-450) k/uL MPV Neutrophils % % Lymphocytes % % Monocytes % % Eosinophils % % Basophils % % Neutrophils # (1.3-7.7) k/uL Lymphocytes # (1.0-4.8) k/uL Monocytes # (0-1.0) k/uL Eosinophils # (0-0.7) k/uL Basophils # (0-0.2) k/uL Sodium (137-145) mmol/L Potassium (3.5-5.1) mmol/L Chloride (98-107) mmol/L Carbon Dioxide (22-30) mmol/L Anion Gap mmol/L BUN (9-20) mg/dL Creatinine (0.66-1.25) mg/dL Est GFR (CKD-EPI)AfAm (>60 ml/min/1.73 sqM) Est GFR (CKD-EPI)NonAf (>60 ml/min/1.73 sqM) Glucose (74-99) mg/dL Plasma Lactic Acid Erick 1.2 (0.7-2.0) mmol/L Calcium (8.4-10.2) mg/dL Total Bilirubin (0.2-1.3) mg/dL AST (17-59) U/L ALT (4-49) U/L Alkaline Phosphatase (38-126) U/L Total Protein (6.3-8.2) g/dL Albumin (3.5-5.0) g/dL Lipase (23-300) U/L Urine Color Urine Appearance (Clear) Urine pH (5.0-8.0) Ur Specific [place] (1.001-1.035) Urine Protein (Negative) Urine Glucose (UA) (Negative) Urine Ketones (Negative) Urine Blood (Negative) Urine Nitrite (Negative) Urine Bilirubin (Negative) Urine Urobilinogen (<2.0) mg/dL Ur Leukocyte Esterase (Negative) - Radiology Data Radiology results: report reviewed, image reviewed 2 views of the abdomen are obtained. Report is reviewed in its entirety. Impression by Dr. Harden shows nonobstructive bowel gas pattern. Mild fecal burden throughout the colon. Disposition Clinical Impression: Abdominal pain Disposition: HOME SELF-CARE Condition: Good Instructions (If sedation given, give patient instructions): Abdominal Pain (ED) Additional Instructions: Take medications as directed. Increase water intake. Follow up with your primary care physician for recheck in 1-2 days. Return for any new, worsening, or concerning symptoms. Prescriptions: polyethylene glycoL 3350 [Miralax] 17 gm PO DAILY #30 packet Famotidine [Pepcid] 20 mg PO HS #30 tablet Is patient prescribed a controlled substance at d/c from ED?: No Referrals: None,Stated [Primary Care Provider] - 1-2 days Time of Disposition: 01:31
[2021-03-10 01:50] VITALS: BP 121/71; PULSE 80; TEMP 98
== END 2021-03-10 01:40 | disposition home or self-care (01) ==
LOC: EC 22:35
DX: R10.32 Left lower quadrant pain (principal)
CPT/HCPCS: 36415; 74018; 80053; 81003; 83605; 83690; 85025; 96374; 99284

== ENCOUNTER 2021-03-31 20:47 | Emergency (ER) | payer BC, OTHER ==
[2021-03-31 21:36] VITALS: RESP 18
--- NOTE | 2021-03-31 21:58 | ED ---
General Adult HPI - General Chief complaint: ENT Stated complaint: nosebleed,headache Time Seen by Provider: 03/31/21 21:45 Source: patient Mode of arrival: ambulatory Limitations: no limitations - History of Present Illness Initial comments: This 25-year-old male presents with a complaint of a nosebleed from his left nostril which occurred shortly prior to arrival. It lasted approximately 15 minutes. He did not lose a significant amount of blood. It has stopped at this time. He denies any previous nosebleeds. He is not on any blood thinners. He denies any trauma to his nose. He also complains of a slight left-sided headache which has a degree of chronicity. He is able take Tylenol if he gets this headache and it resolves the pain. He also complains of increased stress recently and states that he feels somewhat exhausted. He does relate a history of anxiety. He relates that he has many responsibilities and is very busy. No other complaints or modifying factors. - Related Data Previous Rx's Medication Instructions Recorded Docusate [Colace] 100 mg PO BID #30 capsule 09/02/19 Hydrocodone/Acetaminophen [[place] 1 tab PO Q6HR PRN 3 Days #12 tab 09/02/19 5-325] Famotidine [Pepcid] 20 mg PO HS #30 tablet 03/10/21 polyethylene glycoL 3350 [Miralax] 17 gm PO DAILY #30 packet 03/10/21 Allergies Allergy/AdvReac Type Severity Reaction Status Date / Time No Known Allergies Allergy Verified 03/09/21 22:44 Review of Systems ROS Statement: Those systems with pertinent positive or pertinent negative responses have been documented in the HPI. ROS Other: All systems not noted in ROS Statement are negative. Past Medical History Past Medical History: No Reported History History of Any Multi-Drug Resistant Organisms: None Reported Past Surgical History: Appendectomy Additional Past Surgical History / Comment(s): 09/02/19 Shruti Maurer knee arthroscopy Past Anesthesia/Blood Transfusion Reactions: No Reported Reaction Past Psychological History: No Psychological Hx Reported Smoking Status: Never smoker Past Alcohol Use History: Occasional Past Drug Use History: None Reported - Past Family History Father Family Medical History: Diabetes Mellitus Additional Family Medical History / Comment(s): Pt states he does not know much about his father. Mother Family Medical History: No Reported History Additional Family Medical History / Comment(s): Mother is healthy. General Exam - General Exam Comments Initial Comments: GENERAL: The patient is well nourished and well hydrated. VITAL SIGNS: Heart rate, blood pressure, respiratory rate reviewed as recorded in nurse's notes. EYES: Pupils are round and reactive. Extraocular movements are intact. No conjunctival / lid redness or swelling. ENT: No external evidence of injury, swelling, or ecchymosis. Airway is patent. Throat is clear. There is some minimal dried blood in the left nostril. There is no active bleeding. There is some mild irritation noted. Kesselbach's p leslie. No blood noted in the posterior oropharynx. NECK: Nontender. No swelling or evidence of injury. No subcutaneous emphysema. Trachea is midline. No thyroid mass. HEART: Regular rate and rhythm. Good peripheral pulses. LUNGS/CHEST: Breath sounds clear and equal bilaterally. No rales, rhonchi, or wheezes. No ecchymosis, subcutaneous emphysema, or tenderness. ABDOMEN: Abdomen soft without tenderness. No palpable masses or organomegaly. No peritoneal signs. No abdominal wall swelling or ecchymosis. EXTREMITIES: No extremity tenderness. Normal muscle tone and function. No thoracolumbar tenderness. NEUROLOGIC: Sensation is grossly intact. Cranial nerve exam reveals face is symmetrical, tongue is midline, speech is clear. SKIN: No abrasions or ecchymosis is noted. No induration or masses noted. PSYCHIATRIC: Alert and oriented. Appropriate behavior and judgment. Appears slightly anxious. Limitations: no limitations Course Vital Signs 03/31/21 21:30 Temperature 98.4 F Pulse Rate 110 H Respiratory 18 Rate Blood Pressure 144/84 O2 Sat by Pulse 98 Oximetry Medical Decision Making - Medical Decision Making The patient was seen and examined. It appears as though his nosebleed has stopped. This is an isolated nosebleed and no further treatment appears necessary at this time. He is instructed to utilize Tylenol for his chronic headaches. He is counseled regarding anxiety. Return parameters were discussed. Close follow-up recommended with primary care. Disposition Clinical Impression: Epistaxis, Anxiety, Cephalgia Disposition: HOME SELF-CARE Condition: Good Instructions (If sedation given, give patient instructions): Nosebleed (ED), Anxiety (ED), Acute Headache (ED) Additional Instructions: Please utilize Tylenol if needed for pain. Please avoid aspirin. Is patient prescribed a controlled substance at d/c from ED?: No Referrals: None,Stated [Primary Care Provider] - 1-2 days Time of Disposition: 21:57
[2021-03-31 22:16] VITALS: BP 130/74; PULSE 68; TEMP 97
== END 2021-03-31 22:18 | disposition home or self-care (01) ==
LOC: EC 20:47
DX: R04.0 Epistaxis (principal); R51.9 Headache, unspecified; F41.9 Anxiety disorder, unspecified
CPT/HCPCS: 99283

== ENCOUNTER 2021-08-28 21:43 | Emergency (ER) | payer OTHER ==
[2021-08-28 22:07] VITALS: BP 142/86; PULSE 94; RESP 18; TEMP 98.4
[2021-08-28] MEDS ORDERED: ACETAMINOPHEN TAB 500 MG TAB PO STA (22:47)
[2021-08-28] MEDS ORDERED: IBUPROFEN 800 MG TAB PO STA (22:47)
--- NOTE | 2021-08-28 22:47 | ED ---
Chest Pain HPI - General Chief Complaint: Chest Pain Stated Complaint: Chest Pain Time Seen by Provider: 08/28/21 22:11 Source: patient, RN notes reviewed, old records reviewed Mode of arrival: ambulatory Limitations: no limitations - History of Present Illness Initial Comments: This is a 26-year-old male DF for evaluation of some anterior chest pain. Patient's chest pain patient be chest wall related. The initial chest wall injury a few weeks ago. Patient did run into an aluminum associated bilateral pipe. Patient has no shortness of breath notices symptoms worse with activity especially while at work. Injury was not work-related. Patient has otherwise no complaints no fevers no cough or congestion. Symptoms appear to be sporadically usually sided with movement or position MD Complaint: chest pain -: week(s) Onset: other (Was associated with minor chest trauma) Pain Location: substernal Pain Radiation: none Severity: moderate Severity scale (1-10): 4 Quality: tightness, sharp Consistency: intermittent, now resolved Improves With: nothing Worsens With: nothing Context: trauma/injury Treatments Prior to Arrival: none - Related Data Home Medications Medication Instructions Recorded Confirmed Acetaminophen [Tylenol] 500 mg PO Q4-6H PRN 08/28/21 08/28/21 Allergies Allergy/AdvReac Type Severity Reaction Status Date / Time No Known Allergies Allergy Verified 08/28/21 23:15 Review of Systems ROS Statement: Those systems with pertinent positive or pertinent negative responses have been documented in the HPI. ROS Other: All systems not noted in ROS Statement are negative. Past Medical History Past Medical History: No Reported History History of Any Multi-Drug Resistant Organisms: None Reported Past Surgical History: Appendectomy Additional Past Surgical History / Comment(s): 09/02/19 Shruti Maurer knee arthroscopy Past Anesthesia/Blood Transfusion Reactions: No Reported Reaction Past Psychological History: No Psychological Hx Reported Smoking Status: Never smoker Past Alcohol Use History: Occasional Past Drug Use History: None Reported - Past Family History Father Family Medical History: Diabetes Mellitus Additional Family Medical History / Comment(s): Pt states he does not know much about his father. Mother Family Medical History: No Reported History Additional Family Medical History / Comment(s): Mother is healthy. General Exam Limitations: no limitations General appearance: alert, in no apparent distress Head exam: Present: atraumatic, normocephalic, normal inspection Eye exam: Present: normal appearance, PERRL, EOMI. Absent: scleral icterus, conjunctival injection, periorbital swelling ENT exam: Present: normal exam, mucous membranes moist Neck exam: Present: normal inspection. Absent: tenderness, meningismus, lymphadenopathy Respiratory exam: Present: normal lung sounds bilaterally. Absent: respiratory distress, wheezes, rales, rhonchi, stridor Cardiovascular Exam: Present: regular rate, normal rhythm, normal heart sounds. Absent: systolic murmur, diastolic murmur, rubs, gallop, clicks GI/Abdominal exam: Present: soft, normal bowel sounds. Absent: distended, tenderness, guarding, rebound, rigid Extremities exam: Present: normal inspection, full ROM, normal capillary refill. Absent: tenderness, pedal edema, joint swelling, calf tenderness Back exam: Present: normal inspection Neurological exam: Present: alert, oriented X3, CN II-XII intact Psychiatric exam: Present: normal affect, normal mood Skin exam: Present: warm, dry, intact, normal color. Absent: rash Course Vital Signs 08/28/21 22:02 Temperature 98.4 F Pulse Rate 94 Respiratory 18 Rate Blood Pressure 142/86 O2 Sat by Pulse 98 Oximetry - Reevaluation(s) Reevaluation #1: 08/28/21 23:30 Medical record is reviewed Reevaluation #2: 08/28/21 23:30 Patient does have improved pain control here in the ER Reevaluation #3: 08/28/21 23:30 Patient informed of results and questions answered Chest Pain MDM - MDM 26 male with nonspecific chest pain, symptoms appear to be trauma related.. We'll encourage Motrin and Tylenol for pain and follow up with primary care Disposition Clinical Impression: Chest pain, Atypical chest pain, Costochondritis Disposition: HOME SELF-CARE Condition: Good Instructions (If sedation given, give patient instructions): Chest Pain (ED), Costochondritis (ED) Is patient prescribed a controlled substance at d/c from ED?: No Referrals: None,Stated [Primary Care Provider] - 1-2 days
--- NOTE | 2021-08-28 23:06 | XR ---
EXAMINATION TYPE: XR chest 2V DATE OF EXAM: 08/28/2021 COMPARISON: 08/20/2020 HISTORY: Chest pain TECHNIQUE: 2 views FINDINGS: Heart and mediastinum are normal. Lungs are clear. Diaphragm is normal. Bony thorax appears normal. IMPRESSION: Normal chest. No change.
== END 2021-08-29 01:08 | disposition home or self-care (01) ==
LOC: EC 21:43
DX: M94.0 Chondrocostal junction syndrome [Tietze] (principal); Z90.49 Acquired absence of other specified parts of digestive tract
CPT/HCPCS: 71046; 93005; 99285

== ENCOUNTER 2021-11-12 00:44 | Emergency (ER) | payer OTHER ==
[2021-11-12 00:56] VITALS: RESP 18; TEMP 98.3
[2021-11-12] MEDS ORDERED: IBUPROFEN 400 MG TAB PO STA (03:48)
[2021-11-12] MEDS ORDERED: MAG HYDROX/AL HYDROX/SIMETH 30 ML CUP PO STA (04:04)
[2021-11-12 04:33] LABS: Appearance,Urine Clear (Clear); Bilirubin,Urine Negative (Negative); Blood,Urine Negative (Negative); Color,Urine Colorless; Glucose,Urine (UA) Negative (Negative); Ketones,Urine Negative (Negative); Leukocyte Esterase,Urine Negative (Negative); Nitrite,Urine Negative (Negative); Protein,Urine Negative (Negative); Specific Gravity,Urine 1.004 (1.001-1.035); Urobilinogen,Urine <2.0 mg/dL (<2.0)
[2021-11-12 05:42] VITALS: BP 142/84; PULSE 87
--- NOTE | 2021-11-12 05:49 | ED ---
Back Pain HPI - General Chief Complaint: Back Pain/Injury Stated Complaint: Back Pain Time Seen by Provider: 11/12/21 03:39 Source: patient, EMS Limitations: no limitations - History of Present Illness MD Complaint: back pain -: days(s) Similar Symptoms Previously: No Place: home Radiation: left leg Severity: moderate Quality: burning, aching Consistency: constant Improves With: none Worsens With: other (Sitting) Context: while lifting Associated Symptoms: denies other symptoms - Related Data Home Medications Medication Instructions Recorded Confirmed Acetaminophen [Tylenol] 500 mg PO Q4-6H PRN 08/28/21 11/15/21 Calcium Carbonate [Tums] 500 mg PO TID PRN 11/15/21 11/15/21 Ibuprofen 800 mg PO TID PRN 11/15/21 11/15/21 Methocarbamol [Robaxin-750] 750 - 1,500 mg PO Q8H PRN 11/15/21 11/15/21 diphenhydrAMINE [Benadryl] 25 mg PO DAILY PRN 11/15/21 11/15/21 Allergies Allergy/AdvReac Type Severity Reaction Status Date / Time No Known Allergies Allergy Verified 11/15/21 21:30 Review of Systems ROS Statement: Those systems with pertinent positive or pertinent negative responses have been documented in the HPI. ROS Other: All systems not noted in ROS Statement are negative. Constitutional: Denies: fever, chills Respiratory: Denies: cough, dyspnea Cardiovascular: Denies: chest pain, palpitations Gastrointestinal: Denies: abdominal pain, vomiting, diarrhea, constipation Genitourinary: Denies: dysuria, hematuria Musculoskeletal: Reports: as per HPI, back pain Skin: Denies: rash, lesions Neurological: Reports: headache, paresthesias. Denies: weakness, numbness Past Medical History Past Medical History: No Reported History History of Any Multi-Drug Resistant Organisms: None Reported Past Surgical History: Appendectomy Additional Past Surgical History / Comment(s): 09/02/19 Shruti Maurer knee arthroscopy Past Anesthesia/Blood Transfusion Reactions: No Reported Reaction Past Psychological History: Anxiety Smoking Status: Never smoker Past Alcohol Use History: Occasional Past Drug Use History: Marijuana - Past Family History Father Family Medical History: Diabetes Mellitus Additional Family Medical History / Comment(s): Pt states he does not know much about his father. Mother Family Medical History: No Reported History Additional Family Medical History / Comment(s): Mother is healthy. General Exam Limitations: no limitations General appearance: alert, in no apparent distress Head exam: Present: atraumatic, normocephalic Eye exam: Present: normal appearance Neck exam: Present: normal inspection, full ROM. Absent: tenderness Respiratory exam: Present: normal lung sounds bilaterally. Absent: respiratory distress, wheezes, rales, rhonchi, stridor Cardiovascular Exam: Present: regular rate, normal rhythm, normal heart sounds. Absent: systolic murmur, diastolic murmur, rubs, gallop GI/Abdominal exam: Present: soft. Absent: distended, tenderness, guarding, rebound, pulsatile mass Extremities exam: Present: normal inspection, normal capillary refill. Absent: pedal edema, calf tenderness Back exam: Present: normal inspection, paraspinal tenderness. Absent: CVA tenderness (R), CVA tenderness (L), vertebral tenderness Neurological exam: Present: alert, reflexes normal. Absent: motor sensory deficit Skin exam: Present: warm, dry, intact, normal color. Absent: rash Course Vital Signs 11/12/21 11/12/21 00:47 05:41 Temperature 98.3 F Pulse Rate 89 87 Respiratory 18 18 Rate Blood Pressure 144/89 142/84 O2 Sat by Pulse 98 96 Oximetry Medical Decision Making - Lab Data Lab Results 11/12/21 Range/Units 04:04 Urine Color Colorless Urine Appearance Clear (Clear) Urine pH 6.0 (5.0-8.0) Ur Specific [place] 1.004 (1.001-1.035) Urine Protein Negative (Negative) Urine Glucose (UA) Negative (Negative) Urine Ketones Negative (Negative) Urine Blood Negative (Negative) Urine Nitrite Negative (Negative) Urine Bilirubin Negative (Negative) Urine Urobilinogen <2.0 (<2.0) mg/dL Ur Leukocyte Esterase Negative (Negative) Disposition Clinical Impression: Strain of lumbar region Disposition: HOME SELF-CARE Condition: Good Instructions (If sedation given, give patient instructions): Acute Low Back Pain (ED) Is patient prescribed a controlled substance at d/c from ED?: No Referrals: None,Stated [Primary Care Provider] - 1-2 days
== END 2021-11-12 05:58 | disposition home or self-care (01) ==
LOC: EC 00:44
DX: S39.012A Strain of muscle, fascia and tendon of lower back, initial encounter (principal); F41.9 Anxiety disorder, unspecified; F12.90 Cannabis use, unspecified, uncomplicated; Z90.49 Acquired absence of other specified parts of digestive tract; X50.0XXA Overexertion from strenuous movement or load, initial encounter
CPT/HCPCS: 81003; 99283

== ENCOUNTER 2021-11-15 18:35 | Emergency (ER) | payer OTHER ==
[2021-11-15 19:48] VITALS: RESP 18; TEMP 98.7
--- NOTE | 2021-11-15 19:48 | ED ---
General Adult HPI - General Stated complaint: Abdominal Pain Source: patient - History of Present Illness Initial comments: Patient presents with left-sided abdominal pain which is going on for about 1 week. States pain sharp in nature. He came worse today. Nausea without vomiting. No known fever. No respiratory symptoms. No shortness of breath, p atient does have some pain in the epigastric area as well. Patient states he had some blood in his stool about one week ago. Patient was seen here for evaluation within the last week. No hematuria. Urination. - Related Data Home Medications Medication Instructions Recorded Confirmed Acetaminophen [Tylenol] 500 mg PO Q4-6H PRN 08/28/21 11/15/21 Calcium Carbonate [Tums] 500 mg PO TID PRN 11/15/21 11/15/21 Ibuprofen 800 mg PO TID PRN 11/15/21 11/15/21 Methocarbamol [Robaxin-750] 750 - 1,500 mg PO Q8H PRN 11/15/21 11/15/21 diphenhydrAMINE [Benadryl] 25 mg PO DAILY PRN 11/15/21 11/15/21 Allergies Allergy/AdvReac Type Severity Reaction Status Date / Time No Known Allergies Allergy Verified 11/15/21 21:30 Review of Systems ROS Statement: Those systems with pertinent positive or pertinent negative responses have been documented in the HPI. ROS Other: All systems not noted in ROS Statement are negative. Past Medical History Past Medical History: No Reported History History of Any Multi-Drug Resistant Organisms: None Reported Past Surgical History: Appendectomy Additional Past Surgical History / Comment(s): 09/02/19 Shruti Maurer knee arthroscopy Past Anesthesia/Blood Transfusion Reactions: No Reported Reaction Past Psychological History: Anxiety Smoking Status: Never smoker Past Alcohol Use History: Occasional Past Drug Use History: Marijuana - Past Family History Father Family Medical History: Diabetes Mellitus Additional Family Medical History / Comment(s): Pt states he does not know much about his father. Mother Family Medical History: No Reported History Additional Family Medical History / Comment(s): Mother is healthy. General Exam General appearance: alert, in no apparent distress Head exam: Present: atraumatic, normocephalic, normal inspection Eye exam: Present: normal appearance, PERRL, EOMI. Absent: scleral icterus, conjunctival injection, periorbital swelling ENT exam: Present: normal exam, mucous membranes moist Neck exam: Present: normal inspection. Absent: tenderness, meningismus, lymphadenopathy Respiratory exam: Present: normal lung sounds bilaterally. Absent: respiratory distress, wheezes, rales, rhonchi, stridor Cardiovascular Exam: Present: regular rate, normal rhythm, normal heart sounds. Absent: systolic murmur, diastolic murmur, rubs, gallop, clicks GI/Abdominal exam: Present: soft, tenderness, guarding (Tenderness to left abdomen, most significant in the left lower quadrant area.), normal bowel s ounds. Absent: distended, rebound, rigid Extremities exam: Present: normal inspection, full ROM, normal capillary refill. Absent: tenderness, pedal edema, joint swelling, calf tenderness Back exam: Present: normal inspection Neurological exam: Present: alert, oriented X3, CN II-XII intact Psychiatric exam: Present: normal affect, normal mood Skin exam: Present: warm, dry, intact, normal color. Absent: rash Course Vital Signs 11/15/21 11/15/21 11/16/21 19:42 21:25 01:03 Temperature 98.7 F Pulse Rate 96 95 94 Respiratory 18 18 18 Rate Blood Pressure 160/97 149/84 134/87 O2 Sat by Pulse 98 98 98 Oximetry - Reevaluation(s) Reevaluation #1: 11/15/21 21:32 Patient complaining of increased pain after returning from computed tomography scan. Pain is radiating to the epigastrium and in the lower sternal area. CT was pending, EKG added. Medical Decision Making - Medical Decision Making Patient presents for a second visit within a week for pain to his left side, left lower back, left lower quadrant. Patient denies any hematuria. Denies any vomiting but had some nausea. Differential would include renal colic, diverticulitis, enteritis, most skeletal pain, I think this is less likely be vascular in etiology given the patient's presentation. Pain does occasionally radiate towards the epigastrium. Other etiologies such as pancreatitis, splenic abdomen earlier within the differential but less likely. Note that this patient developed substernal chest pain while getting the computed tomography scan. EKG was added which did show evidence of S1 every 3 T3. D-dimer was added. Case was discussed with ED attending physician, Dr. Torrez. Patient endorsed to Dr. Torrez for further evaluation and disposition. Case discussed in detail. - Lab Data Result diagrams: 11/15/21 20:11 11/15/21 20:11 Lab Results 11/15/21 11/15/21 11/15/21 Range/Units 20:11 20:11 20:11 WBC 8.5 (3.8-10.6) k/uL RBC 4.65 (4.30-5.90) m/uL Hgb 14.7 (13.0-17.5) gm/dL Hct 44.3 (39.0-53.0) % MCV 95.2 (80.0-100.0) fL MCH 31.6 (25.0-35.0) pg MCHC 33.2 (31.0-37.0) g/dL RDW 13.1 (11.5-15.5) % Plt Count 317 (150-450) k/uL MPV 7.4 Neutrophils % 69 % Lymphocytes % 20 % Monocytes % 7 % Eosinophils % 2 % Basophils % 1 % Neutrophils # 5.8 (1.3-7.7) k/uL Lymphocytes # 1.7 (1.0-4.8) k/uL Monocytes # 0.6 (0-1.0) k/uL Eosinophils # 0.2 (0-0.7) k/uL Basophils # 0.0 (0-0.2) k/uL D-Dimer (<0.60) mg/L FEU Sodium 140 (137-145) mmol/L Potassium 4.7 (3.5-5.1) mmol/L Chloride 104 (98-107) mmol/L Carbon Dioxide 23 (22-30) mmol/L Anion Gap 13 mmol/L BUN 17 (9-20) mg/dL Creatinine 0.85 (0.66-1.25) mg/dL Est GFR (CKD-EPI)AfAm >90 (>60 ml/min/1.73 sqM) Est GFR (CKD-EPI)NonAf >90 (>60 ml/min/1.73 sqM) Glucose 110 H (74-99) mg/dL Calcium 10.4 H (8.4-10.2) mg/dL Total Bilirubin 0.4 (0.2-1.3) mg/dL AST 29 (17-59) U/L ALT 33 (4-49) U/L Alkaline Phosphatase 99 (38-126) U/L Total Protein 7.7 (6.3-8.2) g/dL Albumin 5.0 (3.5-5.0) g/dL Lipase 105 (23-300) U/L Urine Color Light Yellow Urine Appearance Clear (Clear) Urine pH 6.0 (5.0-8.0) Ur Specific [place] 1.009 (1.001-1.035) Urine Protein Negative (Negative) Urine Glucose (UA) Negative (Negative) Urine Ketones Negative (Negative) Urine Blood Trace H (Negative) Urine Nitrite Negative (Negative) Urine Bilirubin Negative (Negative) Urine Urobilinogen <2.0 (<2.0) mg/dL Ur Leukocyte Esterase Negative (Negative) Urine RBC 1 (0-5) /hpf Urine WBC <1 (0-5) /hpf Coronavirus (PCR) (Not Detectd) 11/15/21 11/15/21 Range/Units 23:54 23:54 WBC (3.8-10.6) k/uL RBC (4.30-5.90) m/uL Hgb (13.0-17.5) gm/dL Hct (39.0-53.0) % MCV (80.0-100.0) fL MCH (25.0-35.0) pg MCHC (31.0-37.0) g/dL RDW (11.5-15.5) % Plt Count (150-450) k/uL MPV Neutrophils % % Lymphocytes % % Monocytes % % Eosinophils % % Basophils % % Neutrophils # (1.3-7.7) k/uL Lymphocytes # (1.0-4.8) k/uL Monocytes # (0-1.0) k/uL Eosinophils # (0-0.7) k/uL Basophils # (0-0.2) k/uL D-Dimer 0.22 (<0.60) mg/L FEU Sodium (137-145) mmol/L Potassium (3.5-5.1) mmol/L Chloride (98-107) mmol/L Carbon Dioxide (22-30) mmol/L Anion Gap mmol/L BUN (9-20) mg/dL Creatinine (0.66-1.25) mg/dL Est GFR (CKD-EPI)AfAm (>60 ml/min/1.73 sqM) Est GFR (CKD-EPI)NonAf (>60 ml/min/1.73 sqM) Glucose (74-99) mg/dL Calcium (8.4-10.2) mg/dL Total Bilirubin (0.2-1.3) mg/dL AST (17-59) U/L ALT (4-49) U/L Alkaline Phosphatase (38-126) U/L Total Protein (6.3-8.2) g/dL Albumin (3.5-5.0) g/dL Lipase (23-300) U/L Urine Color Urine Appearance (Clear) Urine pH (5.0-8.0) Ur Specific [place] (1.001-1.035) Urine Protein (Negative) Urine Glucose (UA) (Negative) Urine Ketones (Negative) Urine Blood (Negative) Urine Nitrite (Negative) Urine Bilirubin (Negative) Urine Urobilinogen (<2.0) mg/dL Ur Leukocyte Esterase (Negative) Urine RBC (0-5) /hpf Urine WBC (0-5) /hpf Coronavirus (PCR) Not Detected (Not Detectd) - EKG Data EKG Comments: EKG done at 2130 and reviewed with ED attending physician reveals normal sinus rhythm with a rate of 90. Normal axis. Normal cures pathology. Patient has nonspecific changes with inverted T-wave in lead 3 when compared to the previous study. Intervals are normal. Patient also has evidence of S wave in lead 1 and Q wave in lead 3. Disposition Clinical Impression: Abdominal pain Disposition: HOME SELF-CARE Is patient prescribed a controlled substance at d/c from ED?: No Referrals: None,Stated [Primary Care Provider] - 1-2 days
[2021-11-15 20:24] LABS: Basophils % (A) 1 %; Eosinophils # (A) 0.2 k/uL (0-0.7); Eosinophils % (A) 2 %; HCT 44.3 % (39.0-53.0); HGB 14.7 gm/dL (13.0-17.5); Lymphocytes # (A) 1.7 k/uL (1.0-4.8); Lymphocytes % (A) 20 %; MCH 31.6 pg (25.0-35.0); MCHC 33.2 g/dL (31.0-37.0); MCV 95.2 fL (80.0-100.0); Mean Platelet Volume 7.4; Monocytes # (A) 0.6 k/uL (0-1.0); Monocytes % (A) 7 %; Neutrophils # (A) 5.8 k/uL (1.3-7.7); Neutrophils % (A) 69 %; Platelet Count 317 k/uL (150-450); RBC 4.65 m/uL (4.30-5.90); RDW 13.1 % (11.5-15.5); WBC 8.5 k/uL (3.8-10.6)
[2021-11-15] MEDS ORDERED: ONDANSETRON 4 MG/2 ML VIAL IVP STA (20:25)
[2021-11-15] MEDS ORDERED: MORPHINE SULFATE 4 MG/ML SYRINGE IV STA ×2 (20:25→21:31)
[2021-11-15] MEDS ORDERED: SODIUM CHLORIDE 0.9% 500 ML 1,000 ML IV STA (20:26)
[2021-11-15 20:33] LABS: ALT 33 U/L (4-49); AST 29 U/L (17-59); African American GFR (CKD) >90 (>60 ml/min/1.73 sqM); Alkaline Phosphatase 99 U/L (38-126); Anion Gap 13 mmol/L; Blood Urea Nitrogen 17 mg/dL (9-20); Calcium 10.4 mg/dL (8.4-10.2); Carbon Dioxide 23 mmol/L (22-30); Chloride 104 mmol/L (98-107); Glucose 110 mg/dL (74-99); Lipase 105 U/L (23-300); Non-African American GFR(CKD) >90 (>60 ml/min/1.73 sqM); Potassium 4.7 mmol/L (3.5-5.1); Sodium 140 mmol/L (137-145); Total Bilirubin 0.4 mg/dL (0.2-1.3); Total Protein 7.7 g/dL (6.3-8.2)
[2021-11-15 20:59] LABS: Appearance,Urine Clear (Clear); Bilirubin,Urine Negative (Negative); Blood,Urine Trace (Negative); Color,Urine Light Yellow; Glucose,Urine (UA) Negative (Negative); Ketones,Urine Negative (Negative); Leukocyte Esterase,Urine Negative (Negative); Nitrite,Urine Negative (Negative); Protein,Urine Negative (Negative); RBC,Urine 1 /hpf (0-5); Specific Gravity,Urine 1.009 (1.001-1.035); Urobilinogen,Urine <2.0 mg/dL (<2.0); WBC,Urine <1 /hpf (0-5)
--- NOTE | 2021-11-15 21:15 | CT ---
EXAMINATION TYPE: CT abdomen pelvis w con DATE OF EXAM: 11/15/2021 COMPARISON: 09/01/2019 HISTORY: LT side abdomen pain CT DLP: 1204.9 mGycm Automated exposure control for dose reduction was used. CONTRAST: Performed with IV Contrast, patient injected with 100 mL of Isovue 300. Images obtained from the diaphragm to the floor the pelvis with IV contrast. Lung bases are clear. There is no pleural effusion. Heart size is normal. There is small hiatal herni a. Liver spleen and stomach pancreas and gallbladder appear normal. The bile ducts are not dilated. There is no adrenal mass. Kidneys show satisfactory contrast opacification. There is no hydronephrosi s. Ureters are not dilated. There is no retroperitoneal adenopathy. The bladder distends smoothly. Th ere is no inguinal hernia. There is no free fluid in the pelvis. There is no mesenteric edema. There is no ascites or free air. There is no bowel obstruction. Lumbar vertebrae abnormal alignment. Posterior elements are intact. There is no compression fracture. Bony pelvis is intact. Appendix is not seen. No sign of thickened appendix. IMPRESSION: Negative CT scan of the abdomen and pelvis. No adverse change compared to old exam.
[2021-11-16 01:41] VITALS: BP 134/87; PULSE 94
== END 2021-11-16 01:05 | disposition home or self-care (01) ==
LOC: EC 18:35
DX: R10.9 Unspecified abdominal pain (principal); R11.0 Nausea; Z20.822 Contact with and (suspected) exposure to COVID-19
CPT/HCPCS: 36415; 93005; 85379; 80053; 83690; 85025; 81001; 87635; 74177; 99284; 96374; 96375; J2270; J2405; Q9967

== ENCOUNTER 2022-03-14 13:14 | Emergency (ER) | payer OTHER ==
[2022-03-14 14:33] LABS: Appearance,Urine Clear (Clear); Bilirubin,Urine Negative (Negative); Blood,Urine Negative (Negative); Color,Urine Light Yellow; Glucose,Urine (UA) Negative (Negative); Ketones,Urine Negative (Negative); Leukocyte Esterase,Urine Negative (Negative); Nitrite,Urine Negative (Negative); PH, Urine 7.5 (5.0-8.0); Protein,Urine Negative (Negative); Specific Gravity,Urine 1.006 (1.001-1.035); Urobilinogen,Urine <2.0 mg/dL (<2.0)
--- NOTE | 2022-03-14 15:36 | US ---
EXAMINATION TYPE: US scrotum with doppler. Grayscale and color Doppler Duplex imaging performed of t nati scrotum. DATE OF EXAM: 03/14/2022 COMPARISON: NONE CLINICAL HISTORY: pain. Pain within left testicle since 11 am today. Pt states the testicle has been getting larger in size over a month. EXAM MEASUREMENTS: TESTICLES: Right Testicle: 4.1 x 2.5 x 2.1 cm *Left Testicle: 8.2 x 4.9 x 4.4 cm - Enlarged and heterogeneous. EPIDIDYMIS HEAD: Right Epididymis: 1.1 x 1.0 x 1.0 cm. Anechoic area seen: 0.7 x 0.7 x 0.8 cm. What appears to be the was measured at Left Epididymis: 1.4 x 1.4 x 1.9 cm. Appears hyperechoic. Doppler performed to assess for testicular vascularity; bilateral color flow and waveforms are seen. Presence of hydroceles: Fluid seen with internal echoes on the right: 2.4 x 3.1 x 0.8 cm. Presence of varicoceles: Prominent vessels seen bilaterally. Vessels measure 0.21 cm on the right an d 0.21 cm on the left. Left testicle appears enlarged and very heterogeneous throughout. IMPRESSION: 1. Enlarged left testicle suspicious for neoplastic process. Vascular flow is evident within this str ucture. Report was called to the emergency room PA by Dr. Beckham by telephone at the time of interpr etation. 2. Right epididymal cyst.
[2022-03-14 16:02] LABS: Partial Thromboplastin Time 27.3 sec (22.0-30.0); Prothrombin Time 10.6 sec (9.0-12.0)
[2022-03-14 16:04] LABS: Basophils % (A) 1 %; Eosinophils # (A) 0.1 k/uL (0-0.7); Eosinophils % (A) 2 %; HCT 41.7 % (39.0-53.0); HGB 13.7 gm/dL (13.0-17.5); Lymphocytes # (A) 1.3 k/uL (1.0-4.8); Lymphocytes % (A) 18 %; MCH 30.2 pg (25.0-35.0); MCHC 32.8 g/dL (31.0-37.0); Mean Platelet Volume 7.8; Monocytes # (A) 0.5 k/uL (0-1.0); Monocytes % (A) 6 %; Neutrophils % (A) 70 %; Platelet Count 340 k/uL (150-450); RBC 4.53 m/uL (4.30-5.90); RDW 13.5 % (11.5-15.5); WBC 7.2 k/uL (3.8-10.6)
[2022-03-14 16:05] LABS: ALT 31 U/L (4-49); AST 57 U/L (17-59); African American GFR (CKD) >90 (>60 ml/min/1.73 sqM); Albumin 5.2 g/dL (3.5-5.0); Alkaline Phosphatase 120 U/L (38-126); Amylase 74 U/L (30-110); Anion Gap 9 mmol/L; Blood Urea Nitrogen 15 mg/dL (9-20); Calcium 10.5 mg/dL (8.4-10.2); Carbon Dioxide 23 mmol/L (22-30); Chloride 106 mmol/L (98-107); Glucose 95 mg/dL (74-99); Lipase 132 U/L (23-300); Non-African American GFR(CKD) >90 (>60 ml/min/1.73 sqM); Sodium 138 mmol/L (137-145); Total Protein 9.2 g/dL (6.3-8.2)
[2022-03-14 16:09] LABS: Potassium 5.5 mmol/L (3.5-5.1)
[2022-03-14 16:22] VITALS: BP 150/90; PULSE 97; RESP 20; TEMP 98.5
--- NOTE | 2022-03-14 16:30 | XR ---
EXAMINATION TYPE: XR KUB DATE OF EXAM: 03/14/2022 4:01 PM CLINICAL HISTORY: Left-sided pain. TECHNIQUE: Two Upright KUB images of the abdomen are obtained. COMPARISON: CT abdomen and pelvis November 15, 2021 FINDINGS: Scattered gas is seen in non-distended small bowel loops. Gas and fecal material is seen in non-distended colon and rectum. There is no visceromegaly, pneumoperitoneum, or abnormal calcificati on appreciated. The lung bases are clear and the osseous structures are intact. IMPRESSION: Overall nonobstructive bowel gas pattern.
[2022-03-14] MEDS ORDERED: diphenhydrAMINE 50 MG/ML 1 ML VIAL IVP STA (16:31)
--- NOTE | 2022-03-14 16:41 | CT ---
EXAMINATION TYPE: CT abdomen pelvis w con DATE OF EXAM: 03/14/2022 COMPARISON: 11/15/2021 HISTORY: testicular pain and swelling CT DLP: 1039.4 mGycm CONTRAST: CT scan of the abdomen and pelvis is performed without Oral Contrast and with IV Contrast, patient in jected with 100 mL of Isovue 300. FINDINGS: LUNG BASES-: No visible nodule. No infiltrate. LIVER/GB: No calcified gallstones. No space occupying hepatic lesion. Biliary tree is of normal ca liber. PANCREAS: No inflammation. No distinct mass. SPLEEN: No splenic enlargement. No lesion seen. ADRENALS: No nodule. No thickening. KIDNEYS/BLADDER: No hydronephrosis. No nephrolithiasis. No distinct renal mass. Urinary bladder g rossly unremarkable. BOWEL: Normal appendix. Normal bowel caliber. No inflammation. GENITAL ORGANS: No gross abnormality. LYMPH NODES: No greater than 1cm abdominal or pelvic lymph nodes are appreciated. AORTA: No significant abnormality. OSSEOUS STRUCTURES: No significant abnormality is seen. OTHER: Left scrotal hydrocele noted and probable of varicoceles. Consider sonographic evaluation. IMPRESSION: 1. Left scrotal hydrocele noted and probable of varicoceles. Consider sonographic evaluation.
--- NOTE | 2022-03-14 17:21 | ED ---
Male Urogenital HPI - General Chief complaint: Urogenital Stated complaint: Swollen testicles, pain Time Seen by Provider: 03/14/22 14:41 Source: patient Mode of arrival: ambulatory Limitations: no limitations - History of Present Illness Initial comments: Patient complains of pain and swelling to the left testicle. It has been present for one day. Nothing makes it better or worse. The pain doesn't radiate anywhere. He has no dysuria. He has no penile lesions. He has no belly or back pain. He has no fevers or chills. His pain does not radiate anywhere. He denies any injuries. - Related Data Home Medications Medication Instructions Recorded Confirmed Acetaminophen [Tylenol] 500 mg PO Q4-6H PRN 08/28/21 11/15/21 Calcium Carbonate [Tums] 500 mg PO TID PRN 11/15/21 11/15/21 Ibuprofen 800 mg PO TID PRN 11/15/21 11/15/21 Methocarbamol [Robaxin-750] 750 - 1,500 mg PO Q8H PRN 11/15/21 11/15/21 diphenhydrAMINE [Benadryl] 25 mg PO DAILY PRN 11/15/21 11/15/21 Previous Rx's Medication Instructions Recorded Acetaminophen [Tylenol] 500 mg PO Q4-6H PRN #24 tab 02/14/22 Doxycycline [Vibramycin] 100 mg PO BID 1 Days #20 each 02/14/22 Ibuprofen [Motrin] 600 mg PO Q8HR PRN #30 tab 02/14/22 Allergies Allergy/AdvReac Type Severity Reaction Status Date / Time No Known Allergies Allergy Verified 03/14/22 13:45 Review of Systems ROS Statement: Those systems with pertinent positive or pertinent negative responses have been documented in the HPI. ROS Other: All systems not noted in ROS Statement are negative. Past Medical History Past Medical History: No Reported History History of Any Multi-Drug Resistant Organisms: None Reported Past Surgical History: Appendectomy, Orthopedic Surgery Additional Past Surgical History / Comment(s): L knee arthroscopy Past Anesthesia/Blood Transfusion Reactions: No Reported Reaction Past Psychological History: Anxiety Smoking Status: Never smoker Past Alcohol Use History: Occasional Past Drug Use History: Marijuana - Past Family History Father Family Medical History: Diabetes Mellitus Additional Family Medical History / Comment(s): Pt states he does not know much about his father. Mother Family Medical History: No Reported History Additional Family Medical History / Comment(s): Mother is healthy. General Exam Limitations: no limitations General appearance: alert Head exam: Present: atraumatic Eye exam: Present: normal appearance ENT exam: Present: normal exam Neck exam: Present: normal inspection GI/Abdominal exam: Present: soft. Absent: tenderness (Assessment pacemaker those were checked) exam: Present: testicular tenderness. Absent: urethral discharge External exam: Present: swelling. Absent: erythema, lesions, lacerations Extremities exam: Present: normal inspection, full ROM Back exam: Present: normal inspection Neurological exam: Present: alert, oriented X3 Psychiatric exam: Present: normal affect Skin exam: Present: warm, dry Course Vital Signs 03/14/22 03/14/22 13:43 16:15 Temperature 98.6 F 98.5 F Pulse Rate 100 97 Respiratory 16 20 Rate Blood Pressure 126/81 150/90 O2 Sat by Pulse 98 97 Oximetry Medical Decision Making - Medical Decision Making Patient presents with testicular pain. He has tenderness on exam. Ultrasound shows normal color flow to both testicles. The left testicle is concerning r egarding its heterogenicity, which could be suggestive of neoplastic process. Therefore I consult to urology. Patient will follow-up with urology as an outpatient. I did explain to the patient that this could be cancer and he verbalized understanding of that. - Lab Data Result diagrams: 03/14/22 15:22 03/14/22 15:22 Lab Results 03/14/22 03/14/22 03/14/22 Range/Units 13:56 15:22 15:22 WBC 7.2 (3.8-10.6) k/uL RBC 4.53 (4.30-5.90) m/uL Hgb 13.7 (13.0-17.5) gm/dL Hct 41.7 (39.0-53.0) % MCV 92.0 (80.0-100.0) fL MCH 30.2 (25.0-35.0) pg MCHC 32.8 (31.0-37.0) g/dL RDW 13.5 (11.5-15.5) % Plt Count 340 (150-450) k/uL MPV 7.8 Neutrophils % 70 % Lymphocytes % 18 % Monocytes % 6 % Eosinophils % 2 % Basophils % 1 % Neutrophils # 5.0 (1.3-7.7) k/uL Lymphocytes # 1.3 (1.0-4.8) k/uL Monocytes # 0.5 (0-1.0) k/uL Eosinophils # 0.1 (0-0.7) k/uL Basophils # 0.0 (0-0.2) k/uL PT 10.6 (9.0-12.0) sec INR 1.0 (<1.2) APTT 27.3 (22.0-30.0) sec Sodium (137-145) mmol/L Potassium (3.5-5.1) mmol/L Chloride (98-107) mmol/L Carbon Dioxide (22-30) mmol/L Anion Gap mmol/L BUN (9-20) mg/dL Creatinine (0.66-1.25) mg/dL Est GFR (CKD-EPI)AfAm (>60 ml/min/1.73 sqM) Est GFR (CKD-EPI)NonAf (>60 ml/min/1.73 sqM) Glucose (74-99) mg/dL Calcium (8.4-10.2) mg/dL Total Bilirubin (0.2-1.3) mg/dL AST (17-59) U/L ALT (4-49) U/L Alkaline Phosphatase (38-126) U/L Total Protein (6.3-8.2) g/dL Albumin (3.5-5.0) g/dL Amylase (30-110) U/L Lipase (23-300) U/L Urine Color Light Yellow Urine Appearance Clear (Clear) Urine pH 7.5 (5.0-8.0) Ur Specific [place] 1.006 (1.001-1.035) Urine Protein Negative (Negative) Urine Glucose (UA) Negative (Negative) Urine Ketones Negative (Negative) Urine Blood Negative (Negative) Urine Nitrite Negative (Negative) Urine Bilirubin Negative (Negative) Urine Urobilinogen <2.0 (<2.0) mg/dL Ur Leukocyte Esterase Negative (Negative) Blood Type Blood Type Confirm Blood Type Recheck Bld Type Recheck Status Antibody Screen Spec Expiration Date 03/14/22 03/14/22 03/14/22 Range/Units 15:22 15:40 15:45 WBC (3.8-10.6) k/uL RBC (4.30-5.90) m/uL Hgb (13.0-17.5) gm/dL Hct (39.0-53.0) % MCV (80.0-100.0) fL MCH (25.0-35.0) pg MCHC (31.0-37.0) g/dL RDW (11.5-15.5) % Plt Count (150-450) k/uL MPV Neutrophils % % Lymphocytes % % Monocytes % % Eosinophils % % Basophils % % Neutrophils # (1.3-7.7) k/uL Lymphocytes # (1.0-4.8) k/uL Monocytes # (0-1.0) k/uL Eosinophils # (0-0.7) k/uL Basophils # (0-0.2) k/uL PT (9.0-12.0) sec INR (<1.2) APTT (22.0-30.0) sec Sodium 138 (137-145) mmol/L Potassium 5.5 H (3.5-5.1) mmol/L Chloride 106 (98-107) mmol/L Carbon Dioxide 23 (22-30) mmol/L Anion Gap 9 mmol/L BUN 15 (9-20) mg/dL Creatinine 0.73 (0.66-1.25) mg/dL Est GFR (CKD-EPI)AfAm >90 (>60 ml/min/1.73 sqM) Est GFR (CKD-EPI)NonAf >90 (>60 ml/min/1.73 sqM) Glucose 95 (74-99) mg/dL Calcium 10.5 H (8.4-10.2) mg/dL Total Bilirubin 1.0 (0.2-1.3) mg/dL AST 57 (17-59) U/L ALT 31 (4-49) U/L Alkaline Phosphatase 120 (38-126) U/L Total Protein 9.2 H (6.3-8.2) g/dL Albumin 5.2 H (3.5-5.0) g/dL Amylase 74 (30-110) U/L Lipase 132 (23-300) U/L Urine Color Urine Appearance (Clear) Urine pH (5.0-8.0) Ur Specific [place] (1.001-1.035) Urine Protein (Negative) Urine Glucose (UA) (Negative) Urine Ketones (Negative) Urine Blood (Negative) Urine Nitrite (Negative) Urine Bilirubin (Negative) Urine Urobilinogen (<2.0) mg/dL Ur Leukocyte Esterase (Negative) Blood Type O Negative Blood Type Confirm O Negative Blood Type Recheck No Previous Record Bld Type Recheck Status CABO Indicated Antibody Screen NEGATIVE Spec Expiration Date 03/17/20222321 Disposition Clinical Impression: Testicle pain Disposition: HOME SELF-CARE Condition: Good Instructions (If sedation given, give patient instructions): Testicle Pain (ED) Is patient prescribed a controlled substance at d/c from ED?: No Referrals: None,Stated [Primary Care Provider] - 1-2 days Abel Goldsmith MD [STAFF PHYSICIAN] - 1-2 days Time of Disposition: 17:20
== END 2022-03-14 17:10 | disposition home or self-care (01) ==
LOC: EC 13:14
DX: N50.812 Left testicular pain (principal); F41.9 Anxiety disorder, unspecified; F12.90 Cannabis use, unspecified, uncomplicated; Z79.899 Other long term (current) drug therapy
CPT/HCPCS: 36415; 86900; 86901; 80053; 82150; 83690; 85025; 85610; 85730; 86850; 81003; 74018; 93975; 76870; 74177; 99284; 96374; J1200; Q9967

== ENCOUNTER → 2022-04-06 | Outpatient (CLI) | payer SELFPAY ==
--- NOTE | 2022-04-06 15:57 | XR ---
EXAMINATION TYPE: XR chest 2V DATE OF EXAM: 04/06/2022 COMPARISON: Prior chest x-ray August 28, 2021 HISTORY: Testicular cancer. TECHNIQUE: Frontal and lateral views of the chest are obtained. FINDINGS: There is no focal air space opacity, pleural effusion, or pneumothorax seen. The cardiac silhouette size remains within normal limits. The osseous structures are intact. IMPRESSION: No acute cardiopulmonary process. No significant change from prior.
== END | disposition home or self-care (01) ==
LOC: RADXRMAIN 12:16
PROVIDERS: ATTEND Urology
DX: C62.90 Malignant neoplasm of unspecified testis, unspecified whether descended or undescended (principal)
CPT/HCPCS: 71046; 83615

== ENCOUNTER 2022-04-18 01:18 | Emergency (ER) | payer SELFPAY ==
[2022-04-18 01:29] VITALS: BP 149/87; PULSE 87; RESP 16; TEMP 98.1
[2022-04-18 01:57] LABS: Appearance,Urine Clear (Clear); Bilirubin,Urine Negative (Negative); Blood,Urine Negative (Negative); Color,Urine Colorless; Glucose,Urine (UA) Negative (Negative); Ketones,Urine Negative (Negative); Leukocyte Esterase,Urine Negative (Negative); Nitrite,Urine Negative (Negative); PH, Urine 7.5 (5.0-8.0); Protein,Urine Negative (Negative); Specific Gravity,Urine 1.004 (1.001-1.035); Urobilinogen,Urine <2.0 mg/dL (<2.0)
== END 2022-04-18 04:54 | disposition left against medical advice (07) ==
LOC: EC 01:18
DX: Z53.21 Procedure and treatment not carried out due to patient leaving prior to being seen by health care provider (principal); N50.82 Scrotal pain
CPT/HCPCS: 81003; 99499

== ENCOUNTER → 2022-04-27 | Outpatient (CLI) | payer SELFPAY | END | disposition home or self-care (01) | LOC: LABWHC1 14:20 | PROVIDERS: ATTEND Urology | DX: C62.92 Malignant neoplasm of left testis, unspecified whether descended or undescended (principal) | CPT/HCPCS: 36415; 83615 ==

== ENCOUNTER → 2022-05-04 | Outpatient (CLI) | payer SELFPAY | END | disposition home or self-care (01) | LOC: RADCTMAIN 10:36 | PROVIDERS: ATTEND Internal Medicine Hematology & Oncology | DX: C62.92 Malignant neoplasm of left testis, unspecified whether descended or undescended (principal); R06.02 Shortness of breath | CPT/HCPCS: 94060; 94726; 94729 ==

== ENCOUNTER → 2022-05-07 | Outpatient (CLI) | payer SELFPAY ==
[~2022-05-07] MED LIST: diphenhydrAMINE 50 MG CAP PO STA
[2022-05-07 12:56] LABS: African American GFR (CKD) >90 (>60 ml/min/1.73 sqM); Blood Urea Nitrogen 13 mg/dL (9-20); Non-African American GFR(CKD) >90 (>60 ml/min/1.73 sqM)
--- NOTE | 2022-05-07 14:20 | CT ---
EXAMINATION TYPE: CT ChestAbdPelvis w con DATE OF EXAM: 05/07/2022 COMPARISON: CT dated 03/14/2022 HISTORY: Testicular cancer. CT DLP: 1236.2 mGycm Automated exposure control for dose reduction was used. CONTRAST: CT scan of the chest, abdomen and pelvis is performed with Oral Contrast and with IV Contrast, patien t injected with 70ml mL of Isovue 300. FINDINGS: Suboptimal CT scan due to motion artifacts. In spite of the premedication, the patient had reaction a nd sneezed during the CT scan. LUNGS: No definite lung nodule or lesion with the limitation of the artifactual images. Patent trache a and main bronchi. No pleural effusion. MEDIASTINUM: Contrast is seen in the esophagus, possibly due to vomiting or reflux at the time of the scan. Subcentimeter bilateral axillary lymph nodes, nonspecific. Questionable sliding hiatal hernia. No pathologically enlarged lymph nodes in the chest. No cardiomegaly. Patent major mediastinal vesse ls. No pericardial effusion. OTHER: Bilateral mild gynecomastia changes. No gross aggressive bone lesion. LIVER/GB: Suboptimally assessed due to artifact. With this limitation, no definite hepatic focal lesi on identified. Grossly unremarkable gallbladder. PANCREAS: No significant abnormality is seen. SPLEEN: No significant abnormality is seen. ADRENALS: No significant abnormality is seen. KIDNEYS: No significant abnormality is seen. BOWEL: Unremarkable remainder of the stomach, duodenum and small bowel. No evidence of bowel obstruc tion. No gross colonic abnormality. REPRODUCTIVE ORGANS: Unremarkable prostate and seminal vesicles. Unremarkable urinary bladder. Nonvis ualized left testicle, likely due to interval orchiectomy. LYMPH NODES: Scattered subcentimeter bilateral inguinal lymph nodes, stable. Left retroperitoneal enl arged lymph nodes, likely metastatic. The largest measures 4 x 4.3 cm compared to 2.2 x 4.6 cm previo usly. A more inferior lymph node measures 17 x 27 mm compared to 15 x 16 mm previously. OSSEOUS STRUCTURES: No gross aggressive bone lesion. OTHER: Unremarkable abdominal aorta and IVC. No sizable ascites. Left inguinal postoperative changes. IMPRESSION: Suspected interval orchiectomy as described above. Retroperitoneal suspicious lymph nodes, likely met astatic and apparently progressed compared to the previous CT scan. No other definite metastatic disease identified in the chest, abdomen or the pelvis with the limitati on of the artifactual images. Further PET scan assessment can be considered if clinically required.
[2022-05-07 14:36] VITALS: BP 133/73; RESP 16
[2022-05-07 14:48] VITALS: PULSE 78
== END | disposition home or self-care (01) ==
LOC: RADCTMAIN 12:19
PROVIDERS: ATTEND Internal Medicine Hematology & Oncology
DX: C62.92 Malignant neoplasm of left testis, unspecified whether descended or undescended (principal)
CPT/HCPCS: 82565; 84520; 71260; 74177; 36415; Q9967

== ENCOUNTER → 2022-09-06 | Outpatient (CLI) | payer SELFPAY ==
[2022-09-06 10:59] LABS: African American GFR (CKD) >90 (>60 ml/min/1.73 sqM); Blood Urea Nitrogen 8 mg/dL (9-20); Non-African American GFR(CKD) >90 (>60 ml/min/1.73 sqM)
--- NOTE | 2022-09-06 16:04 | CT ---
EXAMINATION TYPE: CT ChestAbdPelvis w con CT DLP: 2108.8 mGycm, Automated exposure control for dose reduction was used. DATE OF EXAM: 09/06/2022 12:14 PM COMPARISON: CT chest abdomen pelvis 05/07/2022. CLINICAL INDICATION:Male, 27 years old with history of C62.92 testicular ca; Technique: Multiple axial images of the chest, abdomen, and pelvis were obtained following the intrav enous administration of 70 cc Isovue-300. Oral contrast wasn't administered. Two-dimensional coronal and sagittal reconstructions were obtained. Patient was premedicated with 13 hour prep. Patient did h ave repeated sneezing after contrast injection. Findings: Motion degraded examination. CHEST: LUNGS/ PLEURA: No pneumothorax or pleural effusion. No suspicious pulmonary nodule or mass. No periph eral wedge-shaped consolidation within the right upper lobe (series 4, image 12). AIRWAY: Patent and unremarkable.. HEART: Size within normal limits. . MEDIASTINUM: No gross evidence of adenopathy. VASCULATURE: No aortic aneurysm. MUSCULOSKELETAL: No acute osseous abnormalities. No aggressive osseous lesions. SOFT TISSUES/LYMPH NODES: Bilateral gynecomastia. No axillary adenopathy. LOWER NECK: No significant findings. ABDOMEN: ABDOMEN LIVER: No focal hepatic lesion however evaluation is limited due to motion artifact. GALLBLADDER AND BILE DUCTS: Unremarkable. PANCREAS: No focal lesion however evaluation is limited due to motion artifact. SPLEEN: No focal lesion however evaluation is limited due to motion artifact. ADRENAL GLANDS: No focal lesion however evaluation is limited due to motion artifact.. KIDNEYS AND URETERS: No evidence of hydronephrosis or renal calculus. No focal lesion however evaluat ion is limited due to motion artifact. PELVIS BLADDER: Unremarkable REPRODUCTIVE: Nonvisualization of the left testicle likely related to orchiectomy. Unremarkable appea [place] of the seminal vesicles and prostate. ABDOMEN & PELVIS STOMACH AND BOWEL: Contrast material throughout the esophagus which may be related to reflux. The sto mach bowel appears grossly unremarkable. Enteric contrast reaches the distal small bowel. No evidence of bowel obstruction. PERITONEUM: No evidence of pneumoperitoneum or free fluid. VASCULATURE: No evidence of aortic aneurysm. MUSCULOSKELETAL: No acute osseous abnormalities. No aggressive osseous lesions. LYMPH NODES: Stable scattered subcentimeter bilateral inguinal lymph nodes. Left retroperitoneal lymp h nodes have decreased in size with largest now measuring 1.1 cm, previously 2.7 cm. Stable right low er quadrant nodularity measuring up to 0.9 cm (series 3, image 88). SOFT TISSUE/ABDOMINAL WALL: Small fat filled umbilical and paraumbilical hernias. Left inguinal posto perative changes. IMPRESSION: 1. Positive response to therapy with decrease in size of retroperitoneal metastatic adenopathy. 2. New peripheral right upper lobe consolidation which may represent an infectious/inflammatory proc ess. Metastatic disease is not entirely excluded. Attention on follow-up.
== END | disposition home or self-care (01) ==
LOC: RADCTMAIN 10:09
PROVIDERS: ATTEND Internal Medicine Hematology & Oncology
DX: Z03.89 Encounter for observation for other suspected diseases and conditions ruled out (principal); C62.92 Malignant neoplasm of left testis, unspecified whether descended or undescended
CPT/HCPCS: 82565; 84520; 71260; 74177; 36415; Q9967

== ENCOUNTER → 2023-03-29 | Outpatient (CLI) | payer BC ==
--- NOTE | 2023-03-30 10:38 | PE ---
EXAMINATION TYPE: PET CT fusion skull to thigh DATE OF EXAM: 03/29/2023 CLINICAL INDICATION:Male, 27 years old with history of C62.92; TECHNIQUE: Following the intravenous administration of 11 mCi of F-18 FDG, whole body images are pe rformed from the skull base to the midthigh. Images are reviewed on the computer in the coronal, axi al, and sagittal planes. Reconstructed rotating images are created on independent workstation and re viewed on the computer. A non-contrast CT is performed in conjunction with the PET scan. Glucose le roderick 88 mg/dL COMPARISON: CT 09/06/2022, PET/CT None, FINDINGS: Mediastinal SUV mean is 1.4. Hepatic parenchyma SUV mean is 2.1. SKULL BASE AND NECK: Focal FDG activity within the right neck lymph node measuring 6 mm in short axis max SUV 4.6. There i s increased FDG activity within the palatine tonsils bilaterally max SUV 4.6 on the right and 3.8 on the left. Right mandibular uptake max SUV 3.3. CHEST, MEDIASTINUM, AND HILAR REGION: Right upper lobe peripheral pleural thickening/adjacent atelectasis suggested axis SUV 1.2. Similar s lightly decreased in size compared to prior on 09/06/2022 ABDOMEN AND PELVIS: Focal radiotracer uptake within the scrotum and max SUV 3.8 which could represent the right testis th e left testis is not definitively visualized. OSSEOUS STRUCTURES: No suspicious radiotracer activity. Some patchy uptake within the osseous structu res favored represent physiologic uptake. OTHER CT: Mild gynecomastia changes bilaterally. Small hiatal hernia. Fat-containing umbilical hernia . Fat-containing right inguinal hernia. IMPRESSION: 1. Focal radiotracer uptake within the scrotum possibly representing right testis, unclear etiology, low levels FDG activity can be seen in normal physiology of the testis correlate clinically. Attenti on on follow-up PET/CT. 2. Findings within the right upper lung on prior CT are favored to represent atelectasis and/or scar ring. It is slightly decreased in size from prior on 09/06/2022. 3. FDG activity within a single right neck lymph node, palatine tonsils and right mandible, correlat e for periodontal disease and/or pharyngitis. Attention on follow-up imaging. Consider short-term fol low-up CT neck.
== END | disposition home or self-care (01) ==
LOC: RADPETMAIN 14:24
PROVIDERS: ATTEND Internal Medicine Hematology & Oncology
DX: C62.92 Malignant neoplasm of left testis, unspecified whether descended or undescended (principal)
CPT/HCPCS: 78815; A9552

== ENCOUNTER → 2023-10-10 | Outpatient (CLI) | payer BC ==
--- NOTE | 2023-10-13 12:58 | PE ---
EXAMINATION TYPE: PET CT fusion skull to thigh DATE OF EXAM: 10/10/2023 CLINICAL INDICATION:Male, 28 years old with history of C62.12 TESTICULAR CANCER; TECHNIQUE: Following the intravenous administration of 9.0 mCi of F-18 FDG, whole body images are p erformed from the skull base to the midthigh. Images are reviewed on the computer in the coronal, ax ial, and sagittal planes. Reconstructed rotating images are created on independent workstation and r eviewed on the computer. A non-contrast CT is performed in conjunction with the PET scan. Glucose l evel 91 mg/dL CT DLP: 847 mGycm, Automated exposure control for dose reduction was used. COMPARISON: CT 09/06/2022 PET/CT 03/29/2023 FINDINGS: Mediastinal SUV mean is 1.7. Hepatic parenchyma SUV mean is 2.7. SKULL BASE AND NECK: * Focal FDG activity within the right neck lymph node measuring 6 mm in short axis max SUV 7.3, prev iously 4.6. * There is increased FDG activity within the palatine tonsils bilaterally max SUV 15.6, previously 4 .6 on the right and 13.1 previously 3.8 on the left. * Uptake within the adenoids max SUV 11.8. * Right mandibular lymph node uptake uptake max SUV 5.6, previously 3.3. * Left neck lymph node max SUV 3.9, previously 1.8 CHEST, MEDIASTINUM, AND HILAR REGION: Right upper lobe peripheral pleural thickening/adjacent atelectasis suggested axis SUV 1.2. Similar s lightly decreased in size compared to prior on 09/06/2022 ABDOMEN AND PELVIS: Focal radiotracer uptake within the scrotum and max SUV 3.8, previously 3.8 favoring physiologic upta ke. Left testis is not visualized. OSSEOUS STRUCTURES: No suspicious radiotracer activity. Some patchy uptake within the osseous structu res favored represent physiologic uptake. OTHER CT: Mild gynecomastia changes bilaterally. Small hiatal hernia. Fat-containing umbilical hernia . Fat-containing right inguinal hernia. IMPRESSION: 1. Stable uptake within the right testis. No suspicious uptake to suggest metastatic disease. 2. FDG activity within a bilateral neck neck lymph lymph nodes are favored to be reactive to an acut e pharyngitis.
== END | disposition home or self-care (01) ==
LOC: RADPETMAIN 07:52
PROVIDERS: ATTEND Internal Medicine Hematology & Oncology
DX: C62.12 Malignant neoplasm of descended left testis (principal); R93.7 Abnormal findings on diagnostic imaging of other parts of musculoskeletal system
CPT/HCPCS: 78815; A9552

== ENCOUNTER 2023-11-16 18:58 | Emergency (ER) | payer BC ==
--- NOTE | 2023-11-16 20:25 | ED ---
General Adult HPI - General Stated complaint: Lt foot infection Time Seen by Provider: 11/16/23 20:20 Source: RN notes reviewed - History of Present Illness Initial comments: 28-year-old male resents to the emergency department the chief complaint of left toe infection. He should left great toe pain that has been ongoing for a couple of weeks. He reports that he believes he had an ingrown toenail however he ran old records toe with 0. His classes total bleed. He denies any known fevers or chills. Still able to ambulate. He is presenting Tylenol and Motrin at home with mild symptomatic improvement. He has seen a office worker in the past for his symptoms. - Related Data Home Medications Medication Instructions Recorded Confirmed Tums Tab 650 mg PO DIRECTED PRN 03/21/22 08/20/22 OLANZapine 1 tab PO HS 05/28/22 08/20/22 Ondansetron [Zofran] 1 tab PO QID PRN 05/28/22 08/20/22 Previous Rx's Medication Instructions Recorded Cephalexin [Keflex] 500 mg PO Q8HR #21 cap 11/16/23 Ibuprofen [Motrin] 800 mg PO Q8H #30 tab 11/16/23 Allergies Allergy/AdvReac Type Severity Reaction Status Date / Time Iodinated Contrast Media Allergy "sneezing,plugged Verified 11/16/23 20:20 nose, lightheaded" Review of Systems ROS Statement: Those systems with pertinent positive or pertinent negative responses have been documented in the HPI. ROS Other: All systems not noted in ROS Statement are negative. Past Medical History Past Medical History: Asthma, Cancer, GERD/Reflux Additional Past Medical History / Comment(s): "blood pressure was high the last few times and my heart beats fast sometimes"-no rx, testicular cancer History of Any Multi-Drug Resistant Organisms: None Reported Past Surgical History: Appendectomy, Orthopedic Surgery Additional Past Surgical History / Comment(s): L knee arthroscopy, surgery for fx rt little finger Past Anesthesia/Blood Transfusion Reactions: No Reported Reaction Smoking Status: Never smoker - Past Family History Mother Family Medical History: No Reported History Additional Family Medical History / Comment(s): . General Exam - General Exam Comments Initial Comments: Visual Physical Exam Vital signs reviewed General: Well-appearing, nontoxic, no acute distress. Head: Normocephalic, atraumatic Eyes: PERRLA, EOMI ENT: Airway patent Chest: Nonlabored breathing Skin: No visual rash, normal skin tone Neuro: Alert and oriented 3 Musculoskeletal: No gross abnormalities General: Alert, in no acute distress Head: atraumatic normocephalic. Eyes PERRL, EOMI intact, mucous membranes moist Respiratory: Lungs clear to auscultation bilaterally Cardiovascular: Rate regular rate and Abdominal: Soft without guarding or rebound Extremities: Normal inspection with full range of motion and normal capillary refill, great toe with mild swelling and dried purulent discharge. No active bleeding. No crepitus noted. I Neuroogic: alert and oriented 3, CN II-XII intact, able to ambulate with steady gait Skin: warm dry and intact with normal color Course Vital Signs 11/16/23 11/16/23 20:20 22:08 Temperature 97.8 F Pulse Rate 95 94 Respiratory 18 20 Rate Blood Pressure 132/79 123/83 O2 Sat by Pulse 96 95 Oximetry Medical Decision Making - Medical Decision Making I performed the quick note portion of this exam, verbal signature Elaine Mac PA-C Was pt. sent in by a medical professional or institution ([facility], [facility], urgent care, hospital, or half-way...) When possible be specific @ -[No] Did you speak to anyone other than the patient for history (EMS, parent, family, police, friend...)? What history was obtained from this source @ -[No] Did you review nursing and triage notes (agree or disagree)? Why? @ -[I reviewed and agree with nursing and triage notes] Were old charts reviewed (outside hosp., previous admission, EMS record, old EKG, old radiological studies, urgent care reports/EKG's, half-way records)? Report findings @ -[No old charts were reviewed] Differential Diagnosis (chest pain, altered mental status, abdominal pain women, abdominal pain men, vaginal bleeding, weakness, fever, dyspnea, syncope, headache, dizziness, GI bleed, back pain, seizure, CVA, palpatations, mental health, musculoskeletal)? @ -[not applicable] EKG interpreted by me (3pts min.). @ -[As above] X-rays interpreted by me (1pt min.). @ X-ray does not reveal any osteomyelitis CT interpreted by me (1pt min.). @ -[None done] U/S interpreted by me (1pt. min.). @ -[None done] What testing was considered but not performed or refused? (CT, X-rays, U/S, labs)? Why? @ -[None] What meds were considered but not given or refused? Why? @ -[None] Did you discuss the management of the patient with other professionals (professionals i.e. , PA, [facility], lab, RT, psych nurse, psychiatric social worker supervisor, busboy, teacher, soil science technical officer, transplant case manager)? Give summary @ -[No] Was smoking cessation discussed for >3mins.? @ -[No] Was critical care preformed (if so, how long)? @ -[No] Were there social determinants of health that impacted care today? How? (Homelessness, low income, unemployed, alcoholism, drug addiction, transportation, low edu. Level, literacy, decrease access to med. care, senior living, rehab)? @ -[No] Was there de-escalation of care discussed even if they declined (Discuss DNR or withdrawal of care, Hospice)? DNR status @ -[No] What co-morbidities impacted this encounter? (DM, HTN, Smoking, COPD, CAD, Cancer, CVA, ARF, Chemo, Hep., AIDS, mental health diagnosis, sleep apnea, morbid obesity)? @ -[None] Was patient admitted / discharged? Hospital course, mention meds given and route, prescriptions, significant lab abnormalities, going to OR and other pertinent info. @ Discharge. This is a pleasant 28-year-old male who presents the emergency department with pain. Patient updated with physical exam performed. Left toe is consistent with ingrown toenail. His x-ray does not reveal any osteomyelitis. Patient was provided Keflex for prophylaxis. Recommend close follow-up with office worker within 1-2 days. Return precautions discussed at length. Discharged in stable condition. Case is discussed with Dr. rodriguez, ED attending who agrees with plan of care Undiagnosed new problem with uncertain prognosis? @ -[No] Drug Therapy requiring intensive monitoring for toxicity (Heparin, Nitro, Insulin, Cardizem)? @ -[No] Were any procedures done? @ -[No] Diagnosis/symptom? @ -left ingrown toenail Acute, or Chronic, or Acute on Chronic? @ -Acute Uncomplicated (without systemic symptoms) or Complicated (systemic symptoms)? @ -Uncomplicated Side effects of treatment? @ -[No] Exacerbation, Progression, or Severe Exacerbation? @ -[No] Poses a threat to life or bodily function? How? (Chest pain, [place], AR, pneumonia, PE, COPD, DKA, ARF, appy, cholecystitis, CVA, Diverticulitis, Homicidal, Suicidal, threat to staff... and all critical care pts) @ -Low likelihood Disposition Clinical Impression: Ingrown toenail of left foot Disposition: HOME SELF-CARE Condition: Stable Additional Instructions: Please take Motrin or Tylenol for pain Please take antibiotic as prescribed Follow-up with Dr. Saini, office worker within 3-5 days Please return to nearest emergency department if worsening pain or symptoms Prescriptions: Cephalexin [Keflex] 500 mg PO Q8HR #21 cap Ibuprofen [Motrin] 800 mg PO Q8H #30 tab Is patient prescribed a controlled substance at d/c from ED?: No Referrals: None,Stated [Primary Care Provider] - 1-2 days Forms: Area PCPs Time of Disposition: 21:58
[2023-11-16 20:28] VITALS: TEMP 97.8
--- NOTE | 2023-11-16 20:54 | XR ---
EXAMINATION TYPE: XR foot complete 3V LT DATE OF EXAM: 11/16/2023 Comparison: None Clinical History: 28-year-old male infection first digit of left foot, pain, left great toe problem Findings: There is some soft tissue swelling of the great toe. No acute fracture, subluxation, or dislocation. No soft tissue air. No periostitis or osteolysis. No retained radiopaque foreign body. Impression: No acute osseous abnormality seen. There may be some soft tissue swelling of the great toe.
[2023-11-16] MEDS ORDERED: CEPHALEXIN 500 MG CAP PO STA (21:45)
[2023-11-16] MEDS ORDERED: IBUPROFEN 800 MG TAB PO STA (21:45)
[2023-11-16 22:22] VITALS: BP 123/83; PULSE 94; RESP 20
== END 2023-11-16 22:11 | disposition home or self-care (01) ==
LOC: EC 18:58
DX: L60.0 Ingrowing nail (principal); J45.909 Unspecified asthma, uncomplicated; Z91.041 Radiographic dye allergy status
CPT/HCPCS: 99283

== ENCOUNTER → 2023-12-17 | Outpatient (CLI) | payer BC | END | disposition home or self-care (01) | LOC: LABWHC1 07:30 | PROVIDERS: ATTEND Internal Medicine | DX: Z00.00 Encounter for general adult medical examination without abnormal findings (principal); I10 Essential (primary) hypertension; D64.9 Anemia, unspecified; E87.8 Other disorders of electrolyte and fluid balance, not elsewhere classified; M10.9 Gout, unspecified; E78.5 Hyperlipidemia, unspecified; E11.65 Type 2 diabetes mellitus with hyperglycemia; N39.0 Urinary tract infection, site not specified; E03.9 Hypothyroidism, unspecified; E66.9 Obesity, unspecified; Z85.45 Personal history of malignant neoplasm of unspecified male genital organ ==

== ENCOUNTER → 2023-12-21 | Outpatient (CLI) | payer BC ==
[2023-12-21 13:29] LABS: Basophils # (A) 0.04 X 10*3/uL (0.00-0.10); Basophils % (A) 0.6 %; Eosinophils # (A) 0.23 X 10*3/uL (0.04-0.35); Eosinophils % (A) 3.5 %; Lymphocytes # (A) 1.58 X 10*3/uL (0.90-5.00); Lymphocytes % (A) 24.2 %; MCH 31.4 pg (27.0-32.0); MCHC 33.3 g/dL (32.0-37.0); MCV 94.2 FL (80.0-97.0); Mean Platelet Volume 10.2 FL (9.5-12.2); Monocytes # (A) 0.97 X 10*3/uL (0.20-1.00); Monocytes % (A) 14.9 %; NRBC Per 100 WBC 0 X 10*3/uL (0.00-0.01); Neutrophils # (A) 3.66 X 10*3/uL (1.80-7.70); Platelet Count 260 X 10*3/uL (140-440); RBC 4.46 X 10*6/uL (4.40-5.60); RDW 13.1 % (11.5-14.5); WBC 6.53 X 10*3/uL (4.50-10.00)
[2023-12-21 13:56] LABS: Erythrocyte Sedimentation Rate 35 mm/Hr (0-15)
[2023-12-21 14:14] LABS: Chol/HDL Ratio 5.45 Ratio; Creatine Kinase 111 U/L (35-257)
[2023-12-21 14:15] LABS: % Iron Saturation 20.97 (15.00-50.00); ALT 26 U/L (10-49); AST 14 U/L (14-35); Albumin 4.8 g/dL (3.8-4.9); Albumin/Globulin Ratio 1.85 Ratio (1.60-3.17); Alkaline Phosphatase 131 U/L (41-126); Blood Urea Nitrogen 15.6 mg/dL (9.0-27.0); Calcium 9.7 mg/dL (8.7-10.3); Carbon Dioxide 21.2 mmol/L (21.6-31.8); Chloride 106 mmol/L (96-109); Globulin 2.6 g/dL (1.6-3.3); Glucose 105 mg/dL (70-110); Iron 82 UG/DL (65-175); LDL Cholesterol,Calculated 152.6 mg/dL (0.0-131.0); Magnesium 1.9 mg/dL (1.5-2.4); Phosphorus 2.8 mg/dL (2.4-5.1); Sodium 142 mmol/L (135-145); T4, Free (Free Thyroxine) 0.95 ng/dL (0.80-1.80); Total Bilirubin 0.3 mg/dL (0.3-1.2); Total Iron Binding Capacity 391 UG/DL (228-460); Total Protein 7.4 g/dL (6.2-8.2); Uric Acid 5.9 mg/dL (3.7-8.7)
[2023-12-21 14:47] LABS: Microalbumin Creatinine Ratio <16 mg/g Cr (0-30); Urine Creatinine 73.8 mg/dL (39.0-259.0)
[2023-12-21 15:18] LABS: Hepatitis A Antibody IgM Nonreactive; Hepatitis B Core IgM Nonreactive; Hepatitis B Surface Antigen Nonreactive; Hepatitis C IgG Antibody Nonreactive
[2023-12-21 16:45] LABS: Appearance,Urine Clear (Clear); Bilirubin,Urine Negative (Negative); Blood,Urine Negative (Negative); Color,Urine Yellow (Yellow); Ketones,Urine Negative (Negative); Nitrite,Urine Negative (Negative); PH, Urine 5.5; Specific Gravity,Urine 1.012 (1.001-1.030); Urobilinogen,Urine 0.2 E.U./DL
== END | disposition home or self-care (01) ==
LOC: LABWHC1 09:16
PROVIDERS: ATTEND Internal Medicine
DX: Z00.00 Encounter for general adult medical examination without abnormal findings (principal); I10 Essential (primary) hypertension; D64.9 Anemia, unspecified; E87.8 Other disorders of electrolyte and fluid balance, not elsewhere classified; M10.9 Gout, unspecified; E78.5 Hyperlipidemia, unspecified; E11.65 Type 2 diabetes mellitus with hyperglycemia; N39.0 Urinary tract infection, site not specified; E66.9 Obesity, unspecified; E03.9 Hypothyroidism, unspecified; Z85.45 Personal history of malignant neoplasm of unspecified male genital organ
CPT/HCPCS: 36415; 80053; 80061; 80074; 81003; 82043; 82272; 82306; 82550; 82570; 82728; 83036; 83540; 83550; 83735; 84100; 84402; 84403; 84439; 84443; 84550; 85025; 85652; 86140

== ENCOUNTER → 2024-02-14 | Outpatient (CLI) | payer BC | END | disposition home or self-care (01) | LOC: LABWHC1 08:41 | PROVIDERS: ATTEND Internal Medicine | DX: C62.92 Malignant neoplasm of left testis, unspecified whether descended or undescended (principal); E55.9 Vitamin D deficiency, unspecified; Z98.890 Other specified postprocedural states | CPT/HCPCS: 36415; 82105; 82306; 83615 ==

== ENCOUNTER → 2024-05-25 | Outpatient (CLI) | payer BC ==
--- NOTE | 2024-05-25 16:02 | US ---
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 IMPRESSION: Unremarkable study 2017 ACR TI-RADS LEVEL: *Highest TI-RADS level nodule reported
== END | disposition home or self-care (01) ==
LOC: RADUSWWP 05-04 07:51
PROVIDERS: ATTEND Internal Medicine
DX: E04.1 Nontoxic single thyroid nodule (principal)
CPT/HCPCS: 76536

== ENCOUNTER 2024-07-01 15:35 | Emergency (ER) | payer OTHER ==
[2024-07-01] MEDS ORDERED: SODIUM CHLORIDE 0.9% 1,000 ML BAG ONE (20:25)
--- NOTE | 2024-08-10 14:36 | XR ---
Arnaud Holder JR ID: [id number] : 1995 EXAMINATION TYPE: XR chest 2V DATE OF EXAM: 07/01/2024 COMPARISON: 04/06/2022 HISTORY: 28-year-old male with chest pain TECHNIQUE: PA and lateral views FINDINGS: Heart normal size. Aorta and pulmonary vasculature within normal limits. There is mild interstitial p rominence without consolidation or pleural effusion. IMPRESSION: Some mild interstitial prominence may reflect bronchitis or asthma. Otherwise, no acute process seen.
== END 2024-07-01 22:46 | disposition home or self-care (01) ==
LOC: EC 15:35
DX: R07.89 Other chest pain (principal)
CPT/HCPCS: 71046; 93005; 96360; 99285

== ENCOUNTER → 2024-09-04 | Outpatient (CLI) | payer OTHER ==
[2024-09-04 15:07] LABS: Basophils # (A) 0.04 X 10*3/uL (0.00-0.10); Basophils % (A) 0.6 %; Eosinophils # (A) 0.34 X 10*3/uL (0.04-0.35); Eosinophils % (A) 5.3 %; HGB 14.2 g/dL (13.0-17.0); Lymphocytes # (A) 1.79 X 10*3/uL (0.90-5.00); Lymphocytes % (A) 27.9 %; MCH 31.6 pg (27.0-32.0); MCV 95.6 FL (80.0-97.0); Mean Platelet Volume 10.4 FL (9.5-12.2); Monocytes # (A) 0.52 X 10*3/uL (0.20-1.00); Monocytes % (A) 8.1 %; NRBC Per 100 WBC 0 X 10*3/uL (0.00-0.01); Neutrophils % (A) 57.6 %; Platelet Count 287 X 10*3/uL (140-440); RDW 13.6 % (11.5-14.5); WBC 6.42 X 10*3/uL (4.50-10.00)
[2024-09-04 15:35] LABS: Chol/HDL Ratio 4.86 Ratio
[2024-09-04 15:36] LABS: ALT 24 U/L (10-49); AST 21 U/L (14-35); Albumin 4.9 g/dL (3.8-4.9); Albumin/Globulin Ratio 1.81 Ratio (1.60-3.17); Alkaline Phosphatase 117 U/L (41-126); BUN/Creat Ratio 17.88 Ratio (12.00-20.00); Blood Urea Nitrogen 14.3 mg/dL (9.0-27.0); Calcium 10.4 mg/dL (8.7-10.3); Carbon Dioxide 25.7 mmol/L (21.6-31.8); Chloride 103 mmol/L (96-109); Globulin 2.7 g/dL (1.6-3.3); Glucose 112 mg/dL (70-110); LDL Cholesterol,Calculated 124.9 mg/dL (0.0-131.0); Sodium 141 mmol/L (135-145); T4, Free (Free Thyroxine) 1.08 ng/dL (0.80-1.80); Total Bilirubin 0.3 mg/dL (0.3-1.2); Total Protein 7.6 g/dL (6.2-8.2)
== END | disposition home or self-care (01) ==
LOC: LABWHC1 10:03
CPT/HCPCS: 36415; 80053; 80061; 82306; 83036; 84439; 84443; 85025; 86480

== ENCOUNTER → 2024-11-12 | Outpatient (CLI) | payer OTHER ==
--- NOTE | 2024-11-16 11:39 | PE ---
EXAMINATION TYPE: PET CT fusion skull to thigh DATE OF EXAM: 11/12/2024 COMPARISON: No recent pertinent CT Prior PET/CT: 10/10/2023 CLINICAL INDICATION: Male, 29 years old with history of C62.12 testicular ca, TECHNIQUE: Following the intravenous administration of 11.45 mCi of F-18 FDG, whole body images are performed from the skull base to the midthigh. Images are reviewed on the computer in the coronal, a xial, and sagittal planes. Reconstructed rotating images are created on independent workstation and reviewed on the computer. A localization and attenuation correction CT is performed in conjunction with the PET scan. DLP: 766.14 mGycm SCAN: Subsequent Blood glucose: 98 mg/dL Average Mediastinum SUV: 2.48 Average Liver SUV: 2.97 FINDINGS: NECK: No abnormal uptake THORAX: No abnormal uptake. Some minimal uptake within the gastroesophageal junction likely normal ABDOMEN: No abnormal uptake PELVIS: No abnormal uptake. Right testicular uptake appears normal. OSSEOUS STRUCTURES: There is a punctate area of uptake within the right ilium image 205, SUV 5.32. Pu nctate metastatic lesion is not excluded. Punctate area left medial iliac wing image 203 has an SUV of 3.4. Couple of punctate sacral areas of uptake may be present, images 197-198. Some mild uptake ma y be within the L4 vertebral body, image 174, SUV 3.96 additional punctate areas of uptake within lum bar spine, example image 157 SUV 3.5 to and L2 and within the lower thoracic spine are present. Early small metastasis should be considered. LOCALIZATION CT: No suspicious findings. No suspicious periaortic adenopathy evident at the level of the renal veins. No suspicious pelvic adenopathy. Urinary bladder is decompressed limiting evaluation . No suspicious inguinal enlarged adenopathy. COMPARISON: Punctate osseous uptake on the current exam not evident on the prior study.. IMPRESSION: 1. There are some new very punctate areas of uptake within the iliac wings, sacrum, thoracic and lumb ar spine. Early metastasis is not excluded. Consider correlation with bone scan. [facility], , 11/16/2024 11:37 AM
== END | disposition home or self-care (01) ==
LOC: RADPETMAIN 07:58
PROVIDERS: ATTEND Internal Medicine Hematology & Oncology
DX: C62.12 Malignant neoplasm of descended left testis (principal)
CPT/HCPCS: 78815; A9552